=== PATIENT | female | born 1940 | race Caucasian/White ===

== ENCOUNTER 2018-04-15 19:51 | Inpatient (IN) | payer OTHER, MEDICAID ==
[2018-04-15] MEDS: ONDANSETRON 4 MG INJ IV (20:20)
[2018-04-15] MEDS: morphine 4 MG/ML VIAL IV (20:20)
[2018-04-15 20:21] LABS: ADD MAN DIFF? NO
[2018-04-15 20:22] LABS: BASOPHILS % 0.3 % (0.0-2.0); EOSINOPHILS # 0.1 10^3/ul (0.0-0.5); EOSINOPHILS % 1.2 % (0.0-7.0); HEMATOCRIT 34.1 % (37.0-47.0); HEMOGLOBIN 10.9 g/dl (12.0-16.0); LYMPHOCYTES # 1.3 10^3/ul (0.8-2.9); LYMPHOCYTES % 19.2 % (15.0-51.0); MEAN CORPUSCULAR HEMOGLOBIN 30.8 pg (29.0-33.0); MEAN CORPUSCULAR VOLUME 96.3 fl (82.0-101.0); MEAN PLATELET VOLUME 9.7 fl (7.4-10.4); MONOCYTE # 0.6 10^3/ul (0.3-0.9); MONOCYTES % 8.5 % (0.0-11.0); NEUTROPHIL # 4.7 10^3/ul (1.6-7.5); NEUTROPHILS % 70.3 % (39.0-77.0); PLATELET COUNT 344 10^3/UL (140-415); RED BLOOD COUNT 3.54 10^6/ul (4.20-5.40); RED CELL DISTRIBUTION WIDTH 14.9 % (11.5-14.5)
[2018-04-15 20:22] LABS: WHITE BLOOD COUNT 6.6 10^3/ul (4.8-10.8)
[2018-04-15 20:41] LABS: ANION GAP 17 (5-13); BLOOD UREA NITROGEN 66 mg/dl (7-20); CALCIUM 8.2 mg/dl (8.4-10.2); CARBON DIOXIDE 17 mmol/L (21-31); CHLORIDE 96 mmol/L (97-110); GLUCOSE 93 mg/dl (70-220); POTASSIUM 5.6 mmol/L (3.5-5.1); SODIUM 130 mmol/L (135-144)
[2018-04-15 20:43] LABS: INR 1.03; PROTIME 13.6 Sec (11.9-14.9); PT RATIO 1.1
[2018-04-15 20:44] LABS: PARTIAL THROMBOPLASTIN TIME 41.2 Sec (23.0-35.0)
[2018-04-15 20:51] LABS: CREATININE 5.66 mg/dl (0.44-1.00)
[2018-04-15 20:53] LABS: TROPONIN-I < 0.012 ng/ml (0.000-0.120)
[2018-04-15] MEDS: SODIUM POLYSTYRENE 15 GM KIT (POWDER + SORBITOL) PO (21:15)
[2018-04-15] MEDS ORDERED: ONDANSETRON 4 MG INJ IV (22:00)
[2018-04-15] MEDS ORDERED: ACETAMINOPHEN 325 MG TAB PO (22:00)
[2018-04-15] MEDS ORDERED: GLUCOSE GEL 15 GRAM TUBE BUCCAL (23:30)
[2018-04-15] MEDS ORDERED: GLUCAGON 1 MG INJ IM (23:30)
[2018-04-15] MEDS ORDERED: DEXTROSE 50% 50 ML SYRINGE IV (23:30)
[2018-04-15] MEDS ORDERED: GLUCOSE GEL 15 GRAM TUBE PO ×2 (23:30)
[2018-04-16] MEDS: SODIUM POLYSTYRENE 15 GM KIT (POWDER + SORBITOL) PO (00:40)
[2018-04-16] MEDS: ONDANSETRON 4 MG INJ IV ×4 (00:41→23:30)
[2018-04-16] MEDS: traMADol 50 MG TAB PO (02:00)
[2018-04-16] MEDS ORDERED: PENDING SANTYL ORDER FOR WOUND CARE XX (04:30)
[2018-04-16] MEDS: PANTOPRAZOLE SODIUM 20 MG TABEC PO (05:50)
[2018-04-16 06:20] LABS: ADD MAN DIFF? NO
[2018-04-16 06:25] LABS: BASOPHILS % 0.4 % (0.0-2.0); EOSINOPHILS % 0.4 % (0.0-7.0); HEMATOCRIT 33.3 % (37.0-47.0); HEMOGLOBIN 10.8 g/dl (12.0-16.0); LYMPHOCYTES # 0.8 10^3/ul (0.8-2.9); LYMPHOCYTES % 10.7 % (15.0-51.0); MEAN CORPUSCULAR HEMOGLOBIN 31.1 pg (29.0-33.0); MEAN CORPUSCULAR HGB CONC 32.4 g/dl (32.0-37.0); MEAN PLATELET VOLUME 10.1 fl (7.4-10.4); MONOCYTE # 0.6 10^3/ul (0.3-0.9); MONOCYTES % 8.2 % (0.0-11.0); NEUTROPHIL # 6.1 10^3/ul (1.6-7.5); PLATELET COUNT 311 10^3/UL (140-415); RED BLOOD COUNT 3.47 10^6/ul (4.20-5.40)
[2018-04-16 06:25] LABS: WHITE BLOOD COUNT 7.6 10^3/ul (4.8-10.8)
[2018-04-16] MEDS: HYDROCODONE/APAP (5/325) TAB PO ×2 (06:34→13:03)
[2018-04-16 07:19] LABS: ALANINE AMINOTRANSFERASE 17 IU/L (13-69); ALBUMIN 2.9 g/dl (3.3-4.9); ALBUMIN/GLOBULIN RATIO 0.74; ALKALINE PHOSPHATASE 212 IU/L (42-121); ANION GAP 20 (5-13); ASPARTATE AMINO TRANSFERASE 36 IU/L (15-46); BILIRUBIN,INDIRECT 0.1 mg/dl (0-1.1); BILIRUBIN,TOTAL 0.1 mg/dl (0.2-1.3); BLOOD UREA NITROGEN 68 mg/dl (7-20); CALCIUM 8.2 mg/dl (8.4-10.2); CARBON DIOXIDE 15 mmol/L (21-31); CHLORIDE 97 mmol/L (97-110); GLUCOSE 90 mg/dl (70-220); POTASSIUM 5.4 mmol/L (3.5-5.1); SODIUM 132 mmol/L (135-144); TOTAL PROTEIN 6.8 g/dl (6.1-8.1)
[2018-04-16] MEDS: HYDROmorphONE 0.5 MG/0.5 ML SYG IV ×2 (07:43→14:25)
[2018-04-16] MEDS: INSULIN ASPART [NOVOLOG] 3 ML PEN SC ×3 (07:48→17:36)
[2018-04-16] MEDS: ISOSORBIDE MONONITRATE(SR)60 MG TAB PO (08:08)
[2018-04-16] MEDS: MULTIVIT/CA CARB/B CMPLX/FA TAB PO (08:08)
[2018-04-16] MEDS: ASPIRIN (EC) 81 MG TAB PO (08:08)
[2018-04-16 08:37] LABS: CREATININE 6.07 mg/dl (0.44-1.00)
[2018-04-16] MEDS: hydrALAzine 20 MG INJ IV (11:56)
[2018-04-16] MEDS ORDERED: HYDROmorphONE 0.5 MG/0.5 ML SYG IV (15:30)
[2018-04-16 20:19] LABS: HEPATITIS B SURFACE ANTIGEN NEGATIVE (NEGATIVE)
[2018-04-16] MEDS: LOSARTAN 25 MG TAB PO (23:30)
[2018-04-16] MEDS: ATORVASTATIN 40 MG TAB PO (23:30)
[2018-04-16] MEDS: HEPARIN 1000 UNITS/ML 10 ML INJ CATHETER (23:36)
[2018-04-17] MEDS: HYDROmorphONE 0.5 MG/0.5 ML SYG IV ×3 (00:16→20:57)
[2018-04-17 05:35] LABS: ADD MAN DIFF? NO
[2018-04-17 05:43] LABS: BASOPHILS % 0.3 % (0.0-2.0); HEMATOCRIT 31.1 % (37.0-47.0); HEMOGLOBIN 10.2 g/dl (12.0-16.0); LYMPHOCYTES # 0.8 10^3/ul (0.8-2.9); LYMPHOCYTES % 10.1 % (15.0-51.0); MEAN CORPUSCULAR HEMOGLOBIN 31.2 pg (29.0-33.0); MEAN CORPUSCULAR HGB CONC 32.8 g/dl (32.0-37.0); MEAN CORPUSCULAR VOLUME 95.1 fl (82.0-101.0); MEAN PLATELET VOLUME 9.7 fl (7.4-10.4); MONOCYTE # 0.7 10^3/ul (0.3-0.9); MONOCYTES % 9.9 % (0.0-11.0); NEUTROPHIL # 5.9 10^3/ul (1.6-7.5); NEUTROPHILS % 79.2 % (39.0-77.0); PLATELET COUNT 293 10^3/UL (140-415); RED BLOOD COUNT 3.27 10^6/ul (4.20-5.40); RED CELL DISTRIBUTION WIDTH 15.6 % (11.5-14.5)
[2018-04-17 05:43] LABS: WHITE BLOOD COUNT 7.5 10^3/ul (4.8-10.8)
[2018-04-17 05:52] LABS: ALANINE AMINOTRANSFERASE 24 IU/L (13-69); ALBUMIN 2.8 g/dl (3.3-4.9); ALBUMIN/GLOBULIN RATIO 0.71; ALKALINE PHOSPHATASE 185 IU/L (42-121); ANION GAP 10 (5-13); ASPARTATE AMINO TRANSFERASE 35 IU/L (15-46); BILIRUBIN,INDIRECT 0.3 mg/dl (0-1.1); BILIRUBIN,TOTAL 0.3 mg/dl (0.2-1.3); BLOOD UREA NITROGEN 23 mg/dl (7-20); CALCIUM 8.7 mg/dl (8.4-10.2); CARBON DIOXIDE 27 mmol/L (21-31); CHLORIDE 103 mmol/L (97-110); GLUCOSE 94 mg/dl (70-220); POTASSIUM 3.9 mmol/L (3.5-5.1); SODIUM 140 mmol/L (135-144); TOTAL PROTEIN 6.7 g/dl (6.1-8.1)
[2018-04-17] MEDS: INSULIN ASPART [NOVOLOG] 3 ML PEN SC ×3 (08:00→17:18)
[2018-04-17] MEDS: ONDANSETRON 4 MG INJ IV (08:34)
[2018-04-17] MEDS: MULTIVIT/CA CARB/B CMPLX/FA TAB PO (09:27)
[2018-04-17] MEDS: ASPIRIN (EC) 81 MG TAB PO (09:28)
[2018-04-17] MEDS: LOSARTAN 25 MG TAB PO ×2 (09:28→20:56)
[2018-04-17] MEDS: ISOSORBIDE MONONITRATE(SR)60 MG TAB PO (09:28)
[2018-04-17] MEDS: PANTOPRAZOLE SODIUM 20 MG TABEC PO (09:29)
[2018-04-17] MEDS ORDERED: METOPROLOL 5 MG INJ IV (11:30)
[2018-04-17 11:52] LABS: CREATINE KINASE 82 IU/L (23-200)
[2018-04-17 12:05] LABS: CK INDEX 3.5; CK-MB 2.91 ng/ml (0.0-2.4)
[2018-04-17 12:08] LABS: TROPONIN-I 0.229 ng/ml (0.000-0.120)
[2018-04-17 12:50] LABS: CREATINE KINASE 73 IU/L (23-200)
[2018-04-17 13:02] LABS: CK INDEX 3.6
[2018-04-17 13:03] LABS: TROPONIN-I 0.274 ng/ml (0.000-0.120)
[2018-04-17] MEDS: traMADol 50 MG TAB PO ×2 (14:33→23:07)
[2018-04-17 19:29] LABS: TROPONIN-I 0.307 ng/ml (0.000-0.120)
[2018-04-17] MEDS: HEPARIN 5,000 UNIT/1 ML VIAL SC ×2 (20:19→21:01)
[2018-04-17] MEDS: ATORVASTATIN 40 MG TAB PO (20:55)
[2018-04-18] MEDS: HYDROmorphONE 0.5 MG/0.5 ML SYG IV ×4 (01:03→21:26)
[2018-04-18 01:13] LABS: CREATINE KINASE 74 IU/L (23-200)
[2018-04-18 01:27] LABS: CK INDEX 2.5; CK-MB 1.88 ng/ml (0.0-2.4)
[2018-04-18 01:33] LABS: TROPONIN-I 0.273 ng/ml (0.000-0.120)
[2018-04-18] MEDS: PANTOPRAZOLE SODIUM 20 MG TABEC PO (07:45)
[2018-04-18] MEDS: MULTIVIT/CA CARB/B CMPLX/FA TAB PO (08:15)
[2018-04-18] MEDS: ASPIRIN (EC) 325 MG TAB PO (08:16)
[2018-04-18] MEDS: ISOSORBIDE MONONITRATE(SR)60 MG TAB PO (08:17)
[2018-04-18] MEDS: LOSARTAN 25 MG TAB PO ×2 (08:17→21:25)
[2018-04-18 08:23] LABS: ANION GAP 9 (5-13); BLOOD UREA NITROGEN 29 mg/dl (7-20); CALCIUM 8.4 mg/dl (8.4-10.2); CARBON DIOXIDE 26 mmol/L (21-31); CHLORIDE 102 mmol/L (97-110); CREATININE 3.98 mg/dl (0.44-1.00); GLUCOSE 115 mg/dl (70-220); POTASSIUM 3.3 mmol/L (3.5-5.1); SODIUM 137 mmol/L (135-144)
[2018-04-18 08:25] LABS: CHOLESTEROL 71 mg/dl (100-200)
[2018-04-18 08:25] LABS: CHOL/HDL RATIO 2.2 RATIO; HDL CHOLESTEROL 31 mg/dl (33-92); LDL CHOLESTEROL,CALCULATED 19 mg/dl; TRIGLYCERIDES 103 mg/dl (0-149)
[2018-04-18] MEDS: HEPARIN 5,000 UNIT/1 ML VIAL SC ×2 (08:37→21:36)
[2018-04-18] MEDS: INSULIN ASPART [NOVOLOG] 3 ML PEN SC ×3 (08:37→17:21)
[2018-04-18] MEDS: ONDANSETRON 4 MG INJ IV (11:09)
[2018-04-18] MEDS: POTASSIUM CHLORIDE (SR) 20 MEQ TAB PO (11:51)
[2018-04-18] MEDS: traMADol 50 MG TAB PO (17:39)
[2018-04-18] MEDS: HYDROCODONE/APAP (5/325) TAB PO (19:48)
[2018-04-18] MEDS: ATORVASTATIN 40 MG TAB PO (21:24)
[2018-04-18] MEDS: MUPIROCIN 2% 22 GM OINT TOP (21:26)
[2018-04-18] MEDS: BALSAM PERU/CASTOR OIL 60 GM TUBE TOP (21:26)
[2018-04-18] MEDS: HEPARIN 1000 UNITS/ML 10 ML INJ CATHETER (21:38)
[2018-04-19 06:16] LABS: MAGNESIUM 1.9 mg/dl (1.7-2.5)
[2018-04-19 06:16] LABS: PHOSPHORUS 3.4 mg/dl (2.5-4.9)
[2018-04-19 06:26] LABS: ANION GAP 4 (5-13); BLOOD UREA NITROGEN 11 mg/dl (7-20); CALCIUM 8.2 mg/dl (8.4-10.2); CARBON DIOXIDE 28 mmol/L (21-31); CHLORIDE 105 mmol/L (97-110); CREATININE 2.22 mg/dl (0.44-1.00); GLUCOSE 92 mg/dl (70-220); POTASSIUM 4.3 mmol/L (3.5-5.1); SODIUM 137 mmol/L (135-144)
[2018-04-19] MEDS: PANTOPRAZOLE SODIUM 20 MG TABEC PO (06:56)
[2018-04-19] MEDS: HYDROCODONE/APAP (5/325) TAB PO ×3 (06:56→21:18)
[2018-04-19] MEDS: INSULIN ASPART [NOVOLOG] 3 ML PEN SC ×3 (07:47→17:07)
[2018-04-19] MEDS: ASPIRIN (EC) 325 MG TAB PO (08:34)
[2018-04-19] MEDS: MULTIVIT/CA CARB/B CMPLX/FA TAB PO (08:34)
[2018-04-19] MEDS: ISOSORBIDE MONONITRATE(SR)60 MG TAB PO (08:37)
[2018-04-19] MEDS: LOSARTAN 25 MG TAB PO ×2 (08:37→21:18)
[2018-04-19] MEDS: BALSAM PERU/CASTOR OIL 60 GM TUBE TOP ×2 (08:38→21:18)
[2018-04-19] MEDS: MUPIROCIN 2% 22 GM OINT TOP ×2 (08:38→21:18)
[2018-04-19] MEDS: HEPARIN 5,000 UNIT/1 ML VIAL SC ×2 (08:45→21:25)
[2018-04-19] MEDS: HYDROmorphONE 0.5 MG/0.5 ML SYG IV (15:09)
[2018-04-19 15:28] LABS: FREE T4 (FREE THYROXINE) 2.03 ng/dl (0.85-1.93)
[2018-04-19] MEDS: ATORVASTATIN 40 MG TAB PO (21:16)
[2018-04-20] MEDS: DEXTROSE 5%-0.45% NACL 1,000 ML IV (00:49)
[2018-04-20] MEDS ORDERED: ACCU-CHEK XX (02:00)
[2018-04-20] MEDS: traMADol 50 MG TAB PO (02:17)
[2018-04-20] MEDS: INSULIN ASPART [NOVOLOG] 3 ML PEN SC ×6 (05:00→18:21)
[2018-04-20 05:50] LABS: ADD MAN DIFF? NO
[2018-04-20] MEDS: PANTOPRAZOLE SODIUM 20 MG TABEC PO ×2 (06:00→06:55)
[2018-04-20 06:08] LABS: BASOPHILS % 0.4 % (0.0-2.0); EOSINOPHILS # 0.1 10^3/ul (0.0-0.5); EOSINOPHILS % 2.5 % (0.0-7.0); HEMATOCRIT 27.8 % (37.0-47.0); LYMPHOCYTES % 17.8 % (15.0-51.0); MEAN CORPUSCULAR HEMOGLOBIN 32.3 pg (29.0-33.0); MEAN CORPUSCULAR HGB CONC 32.4 g/dl (32.0-37.0); MEAN CORPUSCULAR VOLUME 99.6 fl (82.0-101.0); MEAN PLATELET VOLUME 10.1 fl (7.4-10.4); MONOCYTE # 0.6 10^3/ul (0.3-0.9); NEUTROPHIL # 3.8 10^3/ul (1.6-7.5); NEUTROPHILS % 68.9 % (39.0-77.0); PLATELET COUNT 207 10^3/UL (140-415); RED BLOOD COUNT 2.79 10^6/ul (4.20-5.40)
[2018-04-20 06:08] LABS: WHITE BLOOD COUNT 5.5 10^3/ul (4.8-10.8)
[2018-04-20 06:29] LABS: ANION GAP 7 (5-13); BLOOD UREA NITROGEN 20 mg/dl (7-20); CARBON DIOXIDE 26 mmol/L (21-31); CHLORIDE 102 mmol/L (97-110); CREATININE 3.07 mg/dl (0.44-1.00); GLUCOSE 103 mg/dl (70-220); POTASSIUM 4.3 mmol/L (3.5-5.1); SODIUM 135 mmol/L (135-144)
[2018-04-20 06:40] LABS: PHOSPHORUS 4.2 mg/dl (2.5-4.9)
[2018-04-20 06:41] LABS: MAGNESIUM 1.8 mg/dl (1.7-2.5)
[2018-04-20] MEDS: HYDROCODONE/APAP (5/325) TAB PO ×3 (06:55→21:00)
[2018-04-20] MEDS: BALSAM PERU/CASTOR OIL 60 GM TUBE TOP ×2 (08:48→20:51)
[2018-04-20] MEDS: MUPIROCIN 2% 22 GM OINT TOP ×2 (08:48→20:51)
[2018-04-20] MEDS: HEPARIN 5,000 UNIT/1 ML VIAL SC ×2 (08:58→20:50)
[2018-04-20] MEDS: LOSARTAN 25 MG TAB PO ×2 (08:59→20:50)
[2018-04-20] MEDS: ASPIRIN (EC) 325 MG TAB PO (08:59)
[2018-04-20] MEDS: MULTIVIT/CA CARB/B CMPLX/FA TAB PO (09:00)
[2018-04-20] MEDS: ISOSORBIDE MONONITRATE(SR)30 MG TAB PO (09:00)
[2018-04-20] MEDS: HYDROmorphONE 0.5 MG/0.5 ML SYG IV ×2 (11:25→18:45)
[2018-04-20] MEDS: REGADENOSON 0.4 MG/5 ML SYG (19:29)
[2018-04-20] MEDS: HEPARIN 1000 UNITS/ML 10 ML INJ CATHETER (20:17)
[2018-04-20] MEDS: ATORVASTATIN 40 MG TAB PO (20:50)
[2018-04-21] MEDS: HYDROmorphONE 0.5 MG/0.5 ML SYG IV ×4 (01:11→21:06)
[2018-04-21] MEDS: ACCU-CHEK XX (02:00)
[2018-04-21 05:52] LABS: ADD MAN DIFF? NO
[2018-04-21 06:00] LABS: WHITE BLOOD COUNT 7.9 10^3/ul (4.8-10.8)
[2018-04-21 06:00] LABS: BASOPHILS % 0.3 % (0.0-2.0); EOSINOPHILS # 0.1 10^3/ul (0.0-0.5); EOSINOPHILS % 1.3 % (0.0-7.0); HEMATOCRIT 33.4 % (37.0-47.0); HEMOGLOBIN 10.7 g/dl (12.0-16.0); LYMPHOCYTES # 1.1 10^3/ul (0.8-2.9); LYMPHOCYTES % 14.4 % (15.0-51.0); MEAN CORPUSCULAR HEMOGLOBIN 31.8 pg (29.0-33.0); MEAN CORPUSCULAR VOLUME 99.1 fl (82.0-101.0); MEAN PLATELET VOLUME 9.9 fl (7.4-10.4); MONOCYTE # 0.8 10^3/ul (0.3-0.9); MONOCYTES % 10.4 % (0.0-11.0); NEUTROPHIL # 5.8 10^3/ul (1.6-7.5); NEUTROPHILS % 73.2 % (39.0-77.0); PLATELET COUNT 283 10^3/UL (140-415); RED BLOOD COUNT 3.37 10^6/ul (4.20-5.40); RED CELL DISTRIBUTION WIDTH 16.2 % (11.5-14.5)
[2018-04-21] MEDS: PANTOPRAZOLE SODIUM 20 MG TABEC PO (06:00)
[2018-04-21 06:42] LABS: ANION GAP 6 (5-13); BLOOD UREA NITROGEN 10 mg/dl (7-20); CALCIUM 8.5 mg/dl (8.4-10.2); CARBON DIOXIDE 30 mmol/L (21-31); CHLORIDE 101 mmol/L (97-110); CREATININE 1.88 mg/dl (0.44-1.00); GLUCOSE 93 mg/dl (70-220); SODIUM 137 mmol/L (135-144)
[2018-04-21 08:48] LABS: PHOSPHORUS 3.3 mg/dl (2.5-4.9)
[2018-04-21 08:48] LABS: MAGNESIUM 1.9 mg/dl (1.7-2.5)
[2018-04-21] MEDS: INSULIN ASPART [NOVOLOG] 3 ML PEN SC ×3 (08:53→18:00)
[2018-04-21] MEDS: ASPIRIN (EC) 325 MG TAB PO (09:07)
[2018-04-21] MEDS: ISOSORBIDE MONONITRATE(SR)30 MG TAB PO (09:07)
[2018-04-21] MEDS: MULTIVIT/CA CARB/B CMPLX/FA TAB PO (09:08)
[2018-04-21] MEDS: LOSARTAN 25 MG TAB PO ×2 (09:08→20:14)
[2018-04-21] MEDS: MUPIROCIN 2% 22 GM OINT TOP ×2 (09:09→20:18)
[2018-04-21] MEDS: BALSAM PERU/CASTOR OIL 60 GM TUBE TOP ×2 (09:10→20:20)
[2018-04-21] MEDS: HEPARIN 5,000 UNIT/1 ML VIAL SC ×2 (09:19→21:05)
[2018-04-21] MEDS: ATORVASTATIN 40 MG TAB PO (20:15)
[2018-04-21] MEDS: HYDROCODONE/APAP (5/325) TAB PO (22:47)
[2018-04-21] MEDS: ONDANSETRON 4 MG INJ IV (22:52)
[2018-04-22] MEDS: ACCU-CHEK XX (02:20)
[2018-04-22] MEDS: HYDROmorphONE 0.5 MG/0.5 ML SYG IV ×3 (03:07→20:47)
[2018-04-22] MEDS: HYDROCODONE/APAP (5/325) TAB PO (05:34)
[2018-04-22] MEDS: PANTOPRAZOLE SODIUM 20 MG TABEC PO (06:00)
[2018-04-22] MEDS ORDERED: CLINDAMYCIN 600 MG/50 ML D5W IVPB IVPB (07:00)
[2018-04-22] MEDS: INSULIN ASPART [NOVOLOG] 3 ML PEN SC ×3 (08:00→17:30)
[2018-04-22] MEDS: LOSARTAN 25 MG TAB PO ×2 (08:01→20:46)
[2018-04-22] MEDS: ISOSORBIDE MONONITRATE(SR)30 MG TAB PO (08:01)
[2018-04-22] MEDS: ASPIRIN (EC) 325 MG TAB PO (08:01)
[2018-04-22] MEDS: MULTIVIT/CA CARB/B CMPLX/FA TAB PO (08:01)
[2018-04-22] MEDS ORDERED: MIDAZOLAM 1 MG/ML 2 ML INJ (09:57)
[2018-04-22] MEDS ORDERED: FENTAnyl 50 MCG/ML VIAL (09:57)
[2018-04-22] MEDS ORDERED: ETOMIDATE 20 MG INJ (09:58)
[2018-04-22] MEDS ORDERED: ROPIVACAINE 0.5 % 30 ML VIAL (10:00)
[2018-04-22] MEDS ORDERED: NACL 0.9% 3 ML SYG IV (11:30)
[2018-04-22] MEDS ORDERED: ONDANSETRON 4 MG INJ IV (11:30)
[2018-04-22] MEDS ORDERED: HYDROmorphONE 1 MG/5 ML IV SYRINGE IV ×2 (11:30)
[2018-04-22] MEDS ORDERED: LABETALOL HCL 20MG INJ IV (11:30)
[2018-04-22] MEDS: hydrALAzine 20 MG INJ IV ×2 (12:15→12:16)
[2018-04-22] MEDS: BALSAM PERU/CASTOR OIL 60 GM TUBE TOP ×2 (13:11→21:00)
[2018-04-22] MEDS: MUPIROCIN 2% 22 GM OINT TOP ×2 (13:11→20:47)
[2018-04-22] MEDS: SOD CHLORIDE 0.9% 1,000 ML IV ×2 (13:32→21:16)
[2018-04-22] MEDS: CEFAZOLIN 1 GM/50 ML (PMX) 50 ML IVPB (13:32)
[2018-04-22] MEDS: HEPARIN 5,000 UNIT/1 ML VIAL SC ×2 (13:46→22:25)
[2018-04-22] MEDS: HEPARIN 1000 UNITS/ML 10 ML INJ CATHETER (17:15)
[2018-04-22] MEDS: ATORVASTATIN 40 MG TAB PO (20:46)
[2018-04-22] MEDS: CALCIUM/VITAMIN D (500/200) TAB PO (20:46)
[2018-04-23] MEDS: ONDANSETRON 4 MG INJ IV ×2 (00:18→09:07)
[2018-04-23] MEDS: CEFAZOLIN 1 GM/50 ML (PMX) 50 ML IVPB (00:48)
[2018-04-23] MEDS: METOPROLOL 5 MG INJ IV (01:52)
[2018-04-23] MEDS: ACCU-CHEK XX (01:54)
[2018-04-23] MEDS: morphine 2 MG INJ IV ×3 (04:24→09:07)
[2018-04-23] MEDS: PANTOPRAZOLE SODIUM 20 MG TABEC PO (06:43)
[2018-04-23] MEDS: SOD CHLORIDE 0.9% 1,000 ML IV ×2 (07:52→17:48)
[2018-04-23] MEDS: ASPIRIN (EC) 325 MG TAB PO (08:20)
[2018-04-23] MEDS: MULTIVIT/CA CARB/B CMPLX/FA TAB PO (08:20)
[2018-04-23] MEDS: CALCIUM/VITAMIN D (500/200) TAB PO ×2 (08:20→20:41)
[2018-04-23] MEDS: LOSARTAN 25 MG TAB PO ×2 (08:21→20:40)
[2018-04-23] MEDS: ISOSORBIDE MONONITRATE(SR)30 MG TAB PO (08:21)
[2018-04-23] MEDS: BALSAM PERU/CASTOR OIL 60 GM TUBE TOP ×2 (08:22→20:41)
[2018-04-23] MEDS: MUPIROCIN 2% 22 GM OINT TOP ×2 (08:22→20:41)
[2018-04-23] MEDS: INSULIN ASPART [NOVOLOG] 3 ML PEN SC ×3 (08:24→17:52)
[2018-04-23] MEDS: HEPARIN 5,000 UNIT/1 ML VIAL SC ×2 (08:25→20:48)
[2018-04-23] MEDS ORDERED: ENOXAPARIN 40 MG/0.4 ML SYG SC (09:00)
[2018-04-23] MEDS: traMADol 50 MG TAB PO ×2 (09:31→16:19)
[2018-04-23] MEDS: KETOROLAC 15 MG INJ IV (12:05)
[2018-04-23] MEDS: HYDROCODONE/APAP (5/325) TAB PO (12:47)
[2018-04-23] MEDS: ATORVASTATIN 40 MG TAB PO (20:40)
[2018-04-24] MEDS: ACCU-CHEK XX (02:17)
[2018-04-24] MEDS: SOD CHLORIDE 0.9% 1,000 ML IV ×2 (02:53→12:17)
[2018-04-24] MEDS: PANTOPRAZOLE SODIUM 20 MG TABEC PO (06:00)
[2018-04-24] MEDS: BALSAM PERU/CASTOR OIL 60 GM TUBE TOP ×2 (08:07→21:08)
[2018-04-24] MEDS: ASPIRIN (EC) 325 MG TAB PO (08:08)
[2018-04-24] MEDS: ISOSORBIDE MONONITRATE(SR)30 MG TAB PO (08:08)
[2018-04-24] MEDS: MUPIROCIN 2% 22 GM OINT TOP ×2 (08:08→21:08)
[2018-04-24] MEDS: MULTIVIT/CA CARB/B CMPLX/FA TAB PO (08:09)
[2018-04-24] MEDS: LOSARTAN 25 MG TAB PO ×2 (08:09→21:06)
[2018-04-24] MEDS: CALCIUM/VITAMIN D (500/200) TAB PO ×2 (08:09→21:13)
[2018-04-24] MEDS: INSULIN ASPART [NOVOLOG] 3 ML PEN SC ×3 (08:15→17:22)
[2018-04-24] MEDS: traMADol 50 MG TAB PO (08:22)
[2018-04-24] MEDS: HEPARIN 5,000 UNIT/1 ML VIAL SC ×2 (08:26→21:20)
[2018-04-24] MEDS: morphine 2 MG INJ IV ×2 (13:48→22:25)
[2018-04-24] MEDS: ATORVASTATIN 40 MG TAB PO (21:04)
[2018-04-25] MEDS: ACCU-CHEK XX (02:00)
[2018-04-25] MEDS: morphine LIQ (10 MG/5 ML) CUP PO ×2 (03:32→11:21)
[2018-04-25] MEDS: PANTOPRAZOLE SODIUM 20 MG TABEC PO (05:36)
[2018-04-25 07:01] LABS: ANION GAP 6 (5-13); BLOOD UREA NITROGEN 28 mg/dl (7-20); CALCIUM 8.2 mg/dl (8.4-10.2); CARBON DIOXIDE 26 mmol/L (21-31); CHLORIDE 106 mmol/L (97-110); CREATININE 3.04 mg/dl (0.44-1.00); GLUCOSE 102 mg/dl (70-220); POTASSIUM 3.9 mmol/L (3.5-5.1); SODIUM 138 mmol/L (135-144)
[2018-04-25] MEDS: INSULIN ASPART [NOVOLOG] 3 ML PEN SC ×4 (07:35→17:35)
[2018-04-25] MEDS: HEPARIN 5,000 UNIT/1 ML VIAL SC ×2 (08:38→22:44)
[2018-04-25] MEDS: MULTIVIT/CA CARB/B CMPLX/FA TAB PO (08:39)
[2018-04-25] MEDS: ASPIRIN (EC) 325 MG TAB PO (08:39)
[2018-04-25] MEDS: CALCIUM/VITAMIN D (500/200) TAB PO ×2 (08:39→22:42)
[2018-04-25] MEDS: BALSAM PERU/CASTOR OIL 60 GM TUBE TOP ×2 (08:40→21:00)
[2018-04-25] MEDS: MUPIROCIN 2% 22 GM OINT TOP (08:40)
[2018-04-25] MEDS: HYDROmorphONE 1 MG/ML SYG IV ×3 (08:45→21:37)
[2018-04-25] MEDS: ISOSORBIDE MONONITRATE(SR)30 MG TAB PO (09:00)
[2018-04-25] MEDS: LOSARTAN 25 MG TAB PO ×2 (09:00→21:00)
[2018-04-25] MEDS: ONDANSETRON 4 MG INJ IV ×2 (10:51→16:30)
[2018-04-25] MEDS: traMADol 50 MG TAB PO (14:00)
[2018-04-25 17:52] LABS: LIPASE 52 U/L (23-300)
[2018-04-25] MEDS: PANTOPRAZOLE 40 MG INJ IV (18:33)
[2018-04-25] MEDS: ATORVASTATIN 40 MG TAB PO (21:00)
[2018-04-25] MEDS: METOCLOPRAMIDE 10 MG INJ IV (21:37)
[2018-04-26] MEDS: ACCU-CHEK XX (01:15)
[2018-04-26] MEDS: traMADol 50 MG TAB PO (03:35)
[2018-04-26] MEDS: ACETAMINOPHEN 325 MG TAB PO (03:36)
[2018-04-26] MEDS: PANTOPRAZOLE 40 MG INJ IV ×2 (05:22→18:00)
[2018-04-26] MEDS ORDERED: DEXTROSE 50% 50 ML SYRINGE (07:00)
[2018-04-26] MEDS ORDERED: CA CHLORIDE 10% 10 ML SYRINGE (07:00)
[2018-04-26] MEDS ORDERED: NA BICARBONATE 8.4% 50 ML SYG ×2 (07:00)
[2018-04-26] MEDS ORDERED: EPINEPHrine 0.1 MG/ML SYG ×3 (07:00)
[2018-04-26] MEDS ORDERED: ATROPINE 1 MG/10 ML SYRINGE (07:00)
[2018-04-26] MEDS ORDERED: AMIODARONE 150 MG INJ (07:00)
[2018-04-26] MEDS: INSULIN ASPART [NOVOLOG] 3 ML PEN SC ×4 (07:35→21:55)
[2018-04-26] MEDS: LOSARTAN 25 MG TAB PO (08:00)
[2018-04-26] MEDS: MULTIVIT/CA CARB/B CMPLX/FA TAB PO (08:00)
[2018-04-26] MEDS: CALCIUM/VITAMIN D (500/200) TAB PO ×2 (08:00→21:45)
[2018-04-26] MEDS: ISOSORBIDE MONONITRATE(SR)30 MG TAB PO (08:00)
[2018-04-26] MEDS: ASPIRIN (EC) 325 MG TAB PO (08:00)
[2018-04-26] MEDS: DEXTROSE 50% 50 ML SYRINGE IV (08:19)
[2018-04-26] MEDS: BALSAM PERU/CASTOR OIL 60 GM TUBE TOP ×2 (09:00→21:00)
[2018-04-26] MEDS ORDERED: DOPamine-D5W 1.6 MG/ML 250 ML (09:54)
[2018-04-26] MEDS ORDERED: NORepinephrine 8MG/250 ML (PMX 250 ML ×2 (09:55→14:57)
[2018-04-26] MEDS ORDERED: EPINEPHRINE 4 MG in D5W 250 ML IV (10:21)
[2018-04-26 10:29] LABS: AADO2 Arterial 551.8 mmHg (7.0-24.0); Arterial Base Excess -1.6 mmol/L (-3.0-3); Arterial Blood Gas Oxygen Sat 97.5 mmHG (95.0-100.0); Arterial COHb 0.4 % (0.0-3.0); Arterial Fraction of Oxyhgb 96.6 % (93.0-99.0); Arterial MetHb 0.5 % (0.0-1.5); Arterial pCO2 38.1 mmhg (35-45); MODE VENT - AC; Site A-Line
[2018-04-26] MEDS: SOD CHLORIDE 0.9% 1,000 ML IV (11:00)
[2018-04-26] MEDS: HEPARIN 5,000 UNIT/1 ML VIAL SC ×2 (11:00→20:09)
[2018-04-26] MEDS: NORepinephrine 8MG/250 ML (PMX 250 ML IV ×2 (11:00→15:00)
[2018-04-26 11:13] LABS: ADD MAN DIFF? NO
[2018-04-26 11:15] LABS: ABNORMAL IP MESSAGE 1; HEMATOCRIT 21.2 % (37.0-47.0); MEAN CORPUSCULAR HEMOGLOBIN 32.3 pg (29.0-33.0); MEAN CORPUSCULAR HGB CONC 30.7 g/dl (32.0-37.0); MEAN CORPUSCULAR VOLUME 105.5 fl (82.0-101.0); MEAN PLATELET VOLUME 11.2 fl (7.4-10.4); NUCLEATED RED BLOOD CELLS% 0.2 /100WBC (0.0-0.0); PLATELET COUNT 173 10^3/UL (140-415); RED BLOOD COUNT 2.01 10^6/ul (4.20-5.40); RED CELL DISTRIBUTION WIDTH 18.2 % (11.5-14.5)
[2018-04-26 11:15] LABS: WHITE BLOOD COUNT 19.9 10^3/ul (4.8-10.8)
[2018-04-26 11:26] LABS: HEMOGLOBIN 6.5 g/dl (12.0-16.0); POSITIVE DIFF @See below
[2018-04-26] MEDS: CEFTRIAXONE 1 GM/50 ML (PMX) 50 ML IVPB (11:30)
[2018-04-26] MEDS: AMIODARONE 900 MG in DEXTROSE 5% 482 ML IV ×2 (11:30→19:00)
[2018-04-26] MEDS: DEXTROSE 5%-0.9% NACL 1,000 ML IV ×2 (11:30→11:31)
[2018-04-26 11:50] LABS: ANION GAP 16 (5-13); ANISOCYTOSIS 1+ (0-0); BAND NEUTROPHILS #M 4.7 10^3/ul (0.0-0.6); BAND NEUTROPHILS % (M) 24 % (0-4); BLOOD UREA NITROGEN 13 mg/dl (7-20); BURR CELLS 1+ (0-0); CALCIUM 8.1 mg/dl (8.4-10.2); CARBON DIOXIDE 21 mmol/L (21-31); CHLORIDE 107 mmol/L (97-110); CREATININE 1.53 mg/dl (0.44-1.00); EOSINOPHILS % (M) 1 % (0-7); ERYTHROBLAST% (NRBC) (M) 1 % (0-0); GLUCOSE 116 mg/dl (70-220); LYMPHOCYTES #M 0.3 10^3/ul (0.8-2.9); LYMPHOCYTES % (M) 2 % (15-51); METAMYELOCYTES #M 0.1 10^3/ul (0.0-0.0); METAMYELOCYTES %M 1 % (0-0); OVALOCYTES 1+ (0-0); PLATELET ESTIMATE NORMAL; POIKILOCYTOSIS 2+ (0-0); POLYCHROMASIA 2+ (0-0); POTASSIUM 3.7 mmol/L (3.5-5.1); SEG NEUT #M 15.3 10^3/ul (1.6-7.5); SEGMENTED NEUTROPHILS (M) % 72 % (39-77); SMUDGE%M 9 % (0-0); SODIUM 144 mmol/L (135-144)
[2018-04-26] MEDS: SOD CHLORIDE 0.9% 250 ML IV* (13:22)
[2018-04-26 14:17] LABS: IMMEDIATE SPIN CROSSMATCH 1 2
[2018-04-26] MEDS: PANTOPRAZOLE IV 80 MG in SOD CHLORIDE 0.9% 100 ML IV (16:30)
[2018-04-26 18:30] LABS: CREATINE KINASE 421 IU/L (23-200)
[2018-04-26 18:43] LABS: CK INDEX 7.2
[2018-04-26] MEDS: DIGOXIN 500 MCG INJ IV (19:41)
[2018-04-26] MEDS ORDERED: PHENYLephrine 80 MG in DEXTROSE 5% 242 ML IV (20:00)
[2018-04-26] MEDS ORDERED: PHENYLephrine 20MG IN 250 ML 250 ML IV (20:00)
[2018-04-26 21:28] LABS: HEMATOCRIT 30.7 % (37.0-47.0); HEMOGLOBIN 9.8 g/dl (12.0-16.0)
[2018-04-26] MEDS: ATORVASTATIN 40 MG TAB PO (21:45)
[2018-04-26] MEDS: PHENYLephrine 80 MG in DEXTROSE 5% 242 ML IV (22:31)
[2018-04-27] MEDS: NORepinephrine 8MG/250 ML (PMX 250 ML IV (00:42)
[2018-04-27] MEDS: INSULIN ASPART [NOVOLOG] 3 ML PEN SC ×6 (01:06→21:30)
[2018-04-27 01:33] LABS: CREATINE KINASE 519 IU/L (23-200)
[2018-04-27] MEDS: morphine 2 MG INJ IV ×2 (01:40→03:55)
[2018-04-27 01:45] LABS: CK INDEX 3.7
[2018-04-27] MEDS: ACCU-CHEK XX (02:00)
[2018-04-27] MEDS: PANTOPRAZOLE IV 80 MG in SOD CHLORIDE 0.9% 100 ML IV ×3 (02:15→22:57)
[2018-04-27] MEDS: DEXTROSE 5%-0.9% NACL 1,000 ML IV (02:15)
[2018-04-27 04:54] LABS: AADO2 Arterial 388.8 mmHg (7.0-24.0); Arterial Base Excess 1.7 mmol/L (-3.0-3); Arterial Blood Gas Oxygen Sat 99.1 mmHG (95.0-100.0); Arterial COHb 0.3 % (0.0-3.0); Arterial Fraction of Oxyhgb 98.6 % (93.0-99.0); Arterial HCO3 23.4 mmol/L (22.0-26.0); Arterial MetHb 0.2 % (0.0-1.5); Arterial pCO2 27.7 mmhg (35-45); MODE VENT - AC; Site A-Line
[2018-04-27 05:35] LABS: WHITE BLOOD COUNT 21.5 10^3/ul (4.8-10.8)
[2018-04-27 05:35] LABS: HEMATOCRIT 28.5 % (37.0-47.0); HEMOGLOBIN 9.4 g/dl (12.0-16.0); MEAN CORPUSCULAR VOLUME 94.1 fl (82.0-101.0); MEAN PLATELET VOLUME 11.6 fl (7.4-10.4); NUCLEATED RED BLOOD CELLS% 0.7 /100WBC (0.0-0.0); PLATELET COUNT 150 10^3/UL (140-415); POSITIVE DIFF @See below; RED BLOOD COUNT 3.03 10^6/ul (4.20-5.40); RED CELL DISTRIBUTION WIDTH 19.2 % (11.5-14.5)
[2018-04-27 05:36] LABS: ADD MAN DIFF? YES
[2018-04-27 05:55] LABS: ANION GAP 11 (5-13); BLOOD UREA NITROGEN 20 mg/dl (7-20); CALCIUM 8.1 mg/dl (8.4-10.2); CARBON DIOXIDE 26 mmol/L (21-31); CHLORIDE 106 mmol/L (97-110); CREATININE 1.98 mg/dl (0.44-1.00); GLUCOSE 165 mg/dl (70-220); POTASSIUM 3.3 mmol/L (3.5-5.1); SODIUM 143 mmol/L (135-144)
[2018-04-27 05:59] LABS: CREATINE KINASE 747 IU/L (23-200)
[2018-04-27 08:04] LABS: ANISOCYTOSIS 1+ (0-0); BAND NEUTROPHILS #M 5.5 10^3/ul (0.0-0.6); BAND NEUTROPHILS % (M) 26 % (0-4); BURR CELLS 1+ (0-0); ELLIPTO 1+ (0-0); GIANT THROMBO% (M) 4 % (0-0); HYPOCHROMASIA 1+ (0-0); LYMPHOCYTES #M 2.7 10^3/ul (0.8-2.9); LYMPHOCYTES % (M) 13 % (15-51); MONOCYTES % (M) 5 % (0-11); PLATELET ESTIMATE NORMAL; POIKILOCYTOSIS 2+ (0-0); SEG NEUT #M 13.2 10^3/ul (1.6-7.5); SEGMENTED NEUTROPHILS (M) % 56 % (39-77); SMUDGE%M 4 % (0-0); TARGET CELLS 1+ (0-0)
[2018-04-27 08:30] LABS: AADO2 Arterial 240.3 mmHg (7.0-24.0); Allen Test ACCEPTAB; Arterial Base Excess 6.7 mmol/L (-3.0-3); Arterial Blood Gas Oxygen Sat 97.2 mmHG (95.0-100.0); Arterial COHb 0.3 % (0.0-3.0); Arterial Fraction of Oxyhgb 96.7 % (93.0-99.0); Arterial HCO3 27.5 mmol/L (22.0-26.0); Arterial MetHb 0.2 % (0.0-1.5); Arterial pCO2 27.1 mmhg (35-45); MODE VENT - AC; Site Right Radial
[2018-04-27] MEDS: COLLAGENASE 5 GM (UD JAR) TOP (09:31)
[2018-04-27] MEDS: MULTIVIT/CA CARB/B CMPLX/FA TAB PO (09:32)
[2018-04-27] MEDS: CALCIUM/VITAMIN D (500/200) TAB PO ×2 (09:32→21:22)
[2018-04-27] MEDS: BALSAM PERU/CASTOR OIL 60 GM TUBE TOP ×2 (09:32→21:27)
[2018-04-27] MEDS: POTASSIUM CHLORIDE 100 ML IVPB (10:23)
[2018-04-27] MEDS: CEFTRIAXONE 1 GM/50 ML (PMX) 50 ML IVPB (10:23)
[2018-04-27] MEDS: PROPOFOL 100 ML IV (13:54)
[2018-04-27] MEDS: PHENYLephrine 80 MG in DEXTROSE 5% 242 ML IV ×2 (17:01→23:05)
[2018-04-27] MEDS: METOCLOPRAMIDE 10 MG INJ IV (17:41)
[2018-04-27] MEDS: ATORVASTATIN 40 MG TAB PO (21:22)
[2018-04-28] MEDS: PROPOFOL 100 ML IV ×3 (00:47→22:32)
[2018-04-28] MEDS: INSULIN ASPART [NOVOLOG] 3 ML PEN SC ×6 (00:52→20:58)
[2018-04-28] MEDS: ACCU-CHEK XX (02:00)
[2018-04-28] MEDS: DEXTROSE 5%-0.9% NACL 1,000 ML IV (02:53)
[2018-04-28] MEDS: PHENYLephrine 80 MG in DEXTROSE 5% 242 ML IV ×4 (05:02→20:57)
[2018-04-28 05:43] LABS: HEMATOCRIT 26.9 % (37.0-47.0); HEMOGLOBIN 9.1 g/dl (12.0-16.0); MEAN CORPUSCULAR HEMOGLOBIN 31.7 pg (29.0-33.0); MEAN CORPUSCULAR HGB CONC 33.8 g/dl (32.0-37.0); MEAN CORPUSCULAR VOLUME 93.7 fl (82.0-101.0); MEAN PLATELET VOLUME 12.4 fl (7.4-10.4); NUCLEATED RED BLOOD CELLS% 2.2 /100WBC (0.0-0.0); PLATELET COUNT 142 10^3/UL (140-415); RED BLOOD COUNT 2.87 10^6/ul (4.20-5.40); RED CELL DISTRIBUTION WIDTH 19.7 % (11.5-14.5)
[2018-04-28 05:43] LABS: WHITE BLOOD COUNT 20.2 10^3/ul (4.8-10.8)
[2018-04-28 05:55] LABS: ADD MAN DIFF? YES; POSITIVE DIFF @See below
[2018-04-28 06:03] LABS: PHOSPHORUS 1.6 mg/dl (2.5-4.9)
[2018-04-28 06:03] LABS: MAGNESIUM 1.6 mg/dl (1.7-2.5)
[2018-04-28 06:23] LABS: ANION GAP 11 (5-13); BLOOD UREA NITROGEN 24 mg/dl (7-20); CARBON DIOXIDE 25 mmol/L (21-31); CHLORIDE 103 mmol/L (97-110); CREATININE 2.46 mg/dl (0.44-1.00); GLUCOSE 211 mg/dl (70-220); POTASSIUM 3.6 mmol/L (3.5-5.1); SODIUM 139 mmol/L (135-144)
[2018-04-28] MEDS: AMIODARONE 900 MG in DEXTROSE 5% 482 ML IV (07:08)
[2018-04-28 08:00] LABS: AADO2 Arterial 150.9 mmHg (7.0-24.0); Arterial Base Excess 0.9 mmol/L (-3.0-3); Arterial Blood Gas Oxygen Sat 97.1 mmHG (95.0-100.0); Arterial COHb 0.1 % (0.0-3.0); Arterial Fraction of Oxyhgb 96.8 % (93.0-99.0); Arterial HCO3 24.2 mmol/L (22.0-26.0); Arterial MetHb 0.2 % (0.0-1.5); Arterial pCO2 33.7 mmhg (35-45); MODE VENT - AC; Site A-Line
[2018-04-28] MEDS: MULTIVIT/CA CARB/B CMPLX/FA TAB PO (08:41)
[2018-04-28] MEDS: BALSAM PERU/CASTOR OIL 60 GM TUBE TOP ×2 (08:41→21:39)
[2018-04-28] MEDS: MAGNESIUM SULFATE 2 GM/50 ML 50 ML IVPB (08:41)
[2018-04-28] MEDS: CALCIUM/VITAMIN D (500/200) TAB PO ×2 (08:41→20:52)
[2018-04-28] MEDS: COLLAGENASE 5 GM (UD JAR) TOP (08:41)
[2018-04-28] MEDS: POTASSIUM PHOSPHATE 10 MM in SOD CHLORIDE 0.9% 250 ML IVPB (08:42)
[2018-04-28] MEDS: INSULIN GLARGINE [LANTus] (100 UNITS/ML) SYG SC (08:49)
[2018-04-28 09:01] LABS: CREATINE KINASE 341 IU/L (23-200)
[2018-04-28 09:13] LABS: CK INDEX 1.3; CK-MB 4.49 ng/ml (0.0-2.4)
[2018-04-28] MEDS: PANTOPRAZOLE IV 80 MG in SOD CHLORIDE 0.9% 100 ML IV (09:41)
[2018-04-28 10:08] LABS: ANISOCYTOSIS 2+ (0-0); BAND NEUTROPHILS #M 2.4 10^3/ul (0.0-0.6); BAND NEUTROPHILS % (M) 12 % (0-4); BURR CELLS 3+ (0-0); ERYTHROBLAST% (NRBC) (M) 2 % (0-0); GIANT THROMBO% (M) 2 % (0-0); LYMPHOCYTES #M 0.8 10^3/ul (0.8-2.9); LYMPHOCYTES % (M) 4 % (15-51); MICROCYTOSIS 1+ (0-0); MONOCYTE #M 0.8 10^3/ul (0.3-0.9); MONOCYTES % (M) 4 % (0-11); PLATELET ESTIMATE NORMAL; POIKILOCYTOSIS 3+ (0-0); POLYCHROMASIA 3+ (0-0); SEG NEUT #M 16.6 10^3/ul (1.6-7.5); SEGMENTED NEUTROPHILS (M) % 80 % (39-77)
[2018-04-28] MEDS: CEFTRIAXONE 1 GM/50 ML (PMX) 50 ML IVPB (11:57)
[2018-04-28] MEDS: FENTAnyl (DRIP) 1000 mcg/100mL 100 ML IV (12:26)
[2018-04-28] MEDS: PANTOPRAZOLE 40 MG INJ IV (17:49)
[2018-04-28] MEDS: ATORVASTATIN 40 MG TAB PO (20:52)
[2018-04-28] MEDS: METOCLOPRAMIDE 10 MG INJ IV (22:31)
[2018-04-29] MEDS: INSULIN ASPART [NOVOLOG] 3 ML PEN SC ×6 (01:15→21:00)
[2018-04-29] MEDS: PHENYLephrine 80 MG in DEXTROSE 5% 242 ML IV ×4 (01:17→19:01)
[2018-04-29] MEDS: ACCU-CHEK XX (02:05)
[2018-04-29] MEDS: FENTAnyl (DRIP) 1000 mcg/100mL 100 ML IV ×2 (02:27→22:10)
[2018-04-29] MEDS: PANTOPRAZOLE 40 MG INJ IV ×2 (05:14→18:12)
[2018-04-29 05:16] LABS: ADD MAN DIFF? NO
[2018-04-29 05:24] LABS: BASOPHIL # 0.1 10^3/ul (0.0-0.1); BASOPHILS % 0.3 % (0.0-2.0); EOSINOPHILS # 0.2 10^3/ul (0.0-0.5); EOSINOPHILS % 1.1 % (0.0-7.0); HEMATOCRIT 26.9 % (37.0-47.0); LYMPHOCYTES # 1.3 10^3/ul (0.8-2.9); LYMPHOCYTES % 6.2 % (15.0-51.0); MEAN CORPUSCULAR HEMOGLOBIN 32.3 pg (29.0-33.0); MEAN CORPUSCULAR HGB CONC 33.5 g/dl (32.0-37.0); MEAN CORPUSCULAR VOLUME 96.4 fl (82.0-101.0); MEAN PLATELET VOLUME 12.5 fl (7.4-10.4); MONOCYTE # 0.9 10^3/ul (0.3-0.9); MONOCYTES % 4.4 % (0.0-11.0); NEUTROPHIL # 18.4 10^3/ul (1.6-7.5); NUCLEATED RED BLOOD CELLS # 0.4 10^3/ul (0.0-0.0); PLATELET COUNT 115 10^3/UL (140-415); RED BLOOD COUNT 2.79 10^6/ul (4.20-5.40); RED CELL DISTRIBUTION WIDTH 19.4 % (11.5-14.5)
[2018-04-29 05:24] LABS: WHITE BLOOD COUNT 21.1 10^3/ul (4.8-10.8)
[2018-04-29 06:40] LABS: ANION GAP 10 (5-13); BLOOD UREA NITROGEN 28 mg/dl (7-20); CARBON DIOXIDE 24 mmol/L (21-31); CHLORIDE 100 mmol/L (97-110); CREATININE 2.66 mg/dl (0.44-1.00); GLUCOSE 208 mg/dl (70-220); MAGNESIUM 2.1 mg/dl (1.7-2.5); PHOSPHORUS 1.2 mg/dl (2.5-4.9); POTASSIUM 3.5 mmol/L (3.5-5.1); SODIUM 134 mmol/L (135-144)
[2018-04-29] MEDS: BALSAM PERU/CASTOR OIL 60 GM TUBE TOP ×2 (08:27→20:19)
[2018-04-29] MEDS: MULTIVIT/CA CARB/B CMPLX/FA TAB PO (08:27)
[2018-04-29] MEDS: COLLAGENASE 5 GM (UD JAR) TOP (08:27)
[2018-04-29] MEDS: CALCIUM/VITAMIN D (500/200) TAB PO ×2 (08:27→21:44)
[2018-04-29 08:30] LABS: AADO2 Arterial 152.1 mmHg (7.0-24.0); Arterial Base Excess 0.1 mmol/L (-3.0-3); Arterial Blood Gas Oxygen Sat 97.2 mmHG (95.0-100.0); Arterial COHb 0.3 % (0.0-3.0); Arterial Fraction of Oxyhgb 96.7 % (93.0-99.0); Arterial HCO3 23.2 mmol/L (22.0-26.0); Arterial MetHb 0.2 % (0.0-1.5); Arterial pCO2 32.3 mmhg (35-45); MODE VENT - AC; Site A-Line
[2018-04-29] MEDS: INSULIN GLARGINE [LANTus] (100 UNITS/ML) SYG SC (08:31)
[2018-04-29] MEDS: CEFTRIAXONE 1 GM/50 ML (PMX) 50 ML IVPB (12:49)
[2018-04-29] MEDS: PROPOFOL 100 ML IV (12:49)
[2018-04-29] MEDS: METOCLOPRAMIDE 10 MG INJ IV ×2 (18:12→23:59)
[2018-04-29] MEDS: HEPARIN 1000 UNITS/ML 10 ML INJ CATHETER (20:16)
[2018-04-29] MEDS: SODIUM PHOSPHATE 20 MEQ in SOD CHLORIDE 0.9% 250 ML IVPB (20:19)
[2018-04-29] MEDS: ATORVASTATIN 40 MG TAB PO (21:44)
[2018-04-30] MEDS: INSULIN ASPART [NOVOLOG] 3 ML PEN SC ×6 (01:00→20:32)
[2018-04-30] MEDS: ACCU-CHEK XX (02:43)
[2018-04-30] MEDS: PHENYLephrine 80 MG in DEXTROSE 5% 242 ML IV ×4 (03:35→21:07)
[2018-04-30] MEDS: PROPOFOL 100 ML IV ×3 (03:36→20:30)
[2018-04-30 05:04] LABS: ADD MAN DIFF? NO
[2018-04-30] MEDS: METOCLOPRAMIDE 10 MG INJ IV ×3 (05:19→17:57)
[2018-04-30] MEDS: LEVOTHYROXINE 100 MCG VIAL IV (05:19)
[2018-04-30] MEDS: PANTOPRAZOLE 40 MG INJ IV ×2 (05:19→17:57)
[2018-04-30 05:24] LABS: BASOPHIL # 0.1 10^3/ul (0.0-0.1); BASOPHILS % 0.3 % (0.0-2.0); EOSINOPHILS # 0.2 10^3/ul (0.0-0.5); EOSINOPHILS % 1.2 % (0.0-7.0); HEMATOCRIT 28.9 % (37.0-47.0); HEMOGLOBIN 9.6 g/dl (12.0-16.0); LYMPHOCYTES # 0.8 10^3/ul (0.8-2.9); LYMPHOCYTES % 4.2 % (15.0-51.0); MEAN CORPUSCULAR HEMOGLOBIN 32.2 pg (29.0-33.0); MEAN CORPUSCULAR HGB CONC 33.2 g/dl (32.0-37.0); MONOCYTE # 0.6 10^3/ul (0.3-0.9); MONOCYTES % 3.2 % (0.0-11.0); NEUTROPHIL # 16.7 10^3/ul (1.6-7.5); NEUTROPHILS % 89.9 % (39.0-77.0); NUCLEATED RED BLOOD CELLS # 0.3 10^3/ul (0.0-0.0); NUCLEATED RED BLOOD CELLS% 1.6 /100WBC (0.0-0.0); PLATELET COUNT 107 10^3/UL (140-415); RED BLOOD COUNT 2.98 10^6/ul (4.20-5.40); RED CELL DISTRIBUTION WIDTH 19.3 % (11.5-14.5)
[2018-04-30 05:24] LABS: WHITE BLOOD COUNT 18.6 10^3/ul (4.8-10.8)
[2018-04-30 05:40] LABS: ANION GAP 9 (5-13); BLOOD UREA NITROGEN 16 mg/dl (7-20); CALCIUM 7.7 mg/dl (8.4-10.2); CARBON DIOXIDE 29 mmol/L (21-31); CHLORIDE 96 mmol/L (97-110); CREATININE 1.81 mg/dl (0.44-1.00); GLUCOSE 113 mg/dl (70-220); MAGNESIUM 1.7 mg/dl (1.7-2.5); PHOSPHORUS 2.3 mg/dl (2.5-4.9); POTASSIUM 3.7 mmol/L (3.5-5.1); SODIUM 134 mmol/L (135-144)
[2018-04-30] MEDS: FENTAnyl (DRIP) 1000 mcg/100mL 100 ML IV ×2 (08:38→17:59)
[2018-04-30] MEDS: COLLAGENASE 5 GM (UD JAR) TOP (09:08)
[2018-04-30] MEDS: MULTIVIT/CA CARB/B CMPLX/FA TAB PO (09:08)
[2018-04-30] MEDS: BALSAM PERU/CASTOR OIL 60 GM TUBE TOP ×2 (09:09→20:30)
[2018-04-30] MEDS: CALCIUM/VITAMIN D (500/200) TAB PO ×2 (09:09→20:30)
[2018-04-30] MEDS: INSULIN GLARGINE [LANTus] (100 UNITS/ML) SYG SC (09:15)
[2018-04-30 09:39] LABS: AADO2 Arterial 128.5 mmHg (7.0-24.0); Arterial Base Excess 0.9 mmol/L (-3.0-3); Arterial Blood Gas Oxygen Sat 93.1 mmHG (95.0-100.0); Arterial COHb 0.4 % (0.0-3.0); Arterial Fraction of Oxyhgb 92.5 % (93.0-99.0); Arterial HCO3 22.3 mmol/L (22.0-26.0); Arterial MetHb 0.2 % (0.0-1.5); Arterial pCO2 25.3 mmhg (35-45); MODE VENT - AC; Site A-Line
[2018-04-30] MEDS ORDERED: CEFEPIME 2GM/50 ML (PMX) 50 ML IVPB ×2 (10:30→21:00)
[2018-04-30] MEDS ORDERED: VANCOMYCIN IV PER PHARMACY XX (10:30)
[2018-04-30] MEDS: CEFEPIME 2GM/50 ML (PMX) 50 ML IVPB (12:13)
[2018-04-30] MEDS: VANCOMYCIN HCL 1.25 GM in SOD CHLORIDE 0.9% 250 ML IVPB (12:14)
[2018-04-30] MEDS: SODIUM PHOSPHATE 15 MMOL in SOD CHLORIDE 0.9% 250 ML IVPB (17:57)
[2018-04-30] MEDS: MIDODRINE 5 MG TAB PO (17:58)
[2018-04-30] MEDS: ATORVASTATIN 40 MG TAB PO (20:30)
[2018-05-01] MEDS: METOCLOPRAMIDE 10 MG INJ IV ×5 (00:07→23:54)
[2018-05-01] MEDS: INSULIN ASPART [NOVOLOG] 3 ML PEN SC ×6 (00:10→21:00)
[2018-05-01] MEDS: PHENYLephrine 80 MG in DEXTROSE 5% 242 ML IV ×4 (01:19→19:39)
[2018-05-01] MEDS: NORepinephrine 8MG/250 ML (PMX 250 ML IV (01:20)
[2018-05-01] MEDS: ACCU-CHEK XX (02:23)
[2018-05-01 05:06] LABS: HEMATOCRIT 26.5 % (37.0-47.0); HEMOGLOBIN 8.8 g/dl (12.0-16.0); MEAN CORPUSCULAR HEMOGLOBIN 32.5 pg (29.0-33.0); MEAN CORPUSCULAR HGB CONC 33.2 g/dl (32.0-37.0); MEAN CORPUSCULAR VOLUME 97.8 fl (82.0-101.0); MEAN PLATELET VOLUME 12.9 fl (7.4-10.4); NUCLEATED RED BLOOD CELLS% 1.6 /100WBC (0.0-0.0); PLATELET COUNT 103 10^3/UL (140-415); RED BLOOD COUNT 2.71 10^6/ul (4.20-5.40); RED CELL DISTRIBUTION WIDTH 19.2 % (11.5-14.5)
[2018-05-01 05:06] LABS: WHITE BLOOD COUNT 14.6 10^3/ul (4.8-10.8)
[2018-05-01 05:17] LABS: POSITIVE DIFF @See below
[2018-05-01 05:19] LABS: ADD MAN DIFF? YES
[2018-05-01 05:24] LABS: LACTIC ACID 1.8 mmol/L (0.5-2.0)
[2018-05-01 05:28] LABS: ANION GAP 14 (5-13); BLOOD UREA NITROGEN 20 mg/dl (7-20); CALCIUM 7.1 mg/dl (8.4-10.2); CARBON DIOXIDE 24 mmol/L (21-31); CHLORIDE 94 mmol/L (97-110); CREATININE 2.16 mg/dl (0.44-1.00); GLUCOSE 165 mg/dl (70-220); MAGNESIUM 1.6 mg/dl (1.7-2.5); POTASSIUM 3.4 mmol/L (3.5-5.1); SODIUM 132 mmol/L (135-144)
[2018-05-01] MEDS: FENTAnyl (DRIP) 1000 mcg/100mL 100 ML IV (05:29)
[2018-05-01] MEDS: PANTOPRAZOLE 40 MG INJ IV ×2 (05:30→17:17)
[2018-05-01] MEDS: LEVOTHYROXINE 100 MCG VIAL IV (05:30)
[2018-05-01] MEDS: INSULIN GLARGINE [LANTus] (100 UNITS/ML) SYG SC (08:02)
[2018-05-01] MEDS: MIDODRINE 5 MG TAB PO ×3 (08:04→17:17)
[2018-05-01] MEDS: COLLAGENASE 5 GM (UD JAR) TOP (08:04)
[2018-05-01] MEDS: BALSAM PERU/CASTOR OIL 60 GM TUBE TOP ×2 (08:04→21:08)
[2018-05-01] MEDS: CALCIUM/VITAMIN D (500/200) TAB PO ×2 (08:04→21:08)
[2018-05-01] MEDS: MULTIVIT/CA CARB/B CMPLX/FA TAB PO (08:04)
[2018-05-01 08:19] LABS: ANISOCYTOSIS 2+ (0-0); BAND NEUTROPHILS % (M) 7 % (0-4); BURR CELLS 1+ (0-0); EOSINOPHILS % (M) 1 % (0-7); ERYTHROBLAST% (NRBC) (M) 2 % (0-0); GIANT THROMBO% (M) 4 % (0-0); LYMPHOCYTES #M 1.6 10^3/ul (0.8-2.9); LYMPHOCYTES % (M) 11 % (15-51); MICROCYTOSIS 1+ (0-0); MONOCYTE #M 0.4 10^3/ul (0.3-0.9); MONOCYTES % (M) 3 % (0-11); MYELOCYTES #M 0.1 10^3/ul (0.0-0.0); MYELOCYTES % (M) 1 % (0-0); PLATELET ESTIMATE DECREASED; POIKILOCYTOSIS 3+ (0-0); POLYCHROMASIA 3+ (0-0); SEG NEUT #M 11.4 10^3/ul (1.6-7.5); SEGMENTED NEUTROPHILS (M) % 77 % (39-77)
[2018-05-01 11:19] LABS: CREATINE KINASE 64 IU/L (23-200)
[2018-05-01] MEDS: MAGNESIUM SULFATE 1 GM/D5W 100 ML IVPB (11:28)
[2018-05-01] MEDS: HYDROCORTISONE 100 MG INJ IV (11:28)
[2018-05-01 11:33] LABS: CK INDEX 2.3; CK-MB 1.49 ng/ml (0.0-2.4)
[2018-05-01] MEDS: PROPOFOL 100 ML IV ×2 (13:00→23:44)
[2018-05-01] MEDS: CEFEPIME 2GM/50 ML (PMX) 50 ML IVPB (13:18)
[2018-05-01] MEDS: POTASSIUM CHLORIDE 100 ML IVPB (14:25)
[2018-05-01] MEDS: ATORVASTATIN 40 MG TAB PO (21:08)
[2018-05-02] MEDS: PHENYLephrine 80 MG in DEXTROSE 5% 242 ML IV ×5 (00:18→23:14)
[2018-05-02] MEDS: INSULIN ASPART [NOVOLOG] 3 ML PEN SC ×6 (00:47→21:34)
[2018-05-02] MEDS: ACCU-CHEK XX (01:10)
[2018-05-02] MEDS: METOCLOPRAMIDE 10 MG INJ IV ×3 (05:14→18:00)
[2018-05-02] MEDS: LEVOTHYROXINE 100 MCG VIAL IV (05:14)
[2018-05-02] MEDS: PANTOPRAZOLE 40 MG INJ IV (05:14)
[2018-05-02 05:15] LABS: WHITE BLOOD COUNT 22.2 10^3/ul (4.8-10.8)
[2018-05-02 05:15] LABS: ABNORMAL IP MESSAGE 1; HEMATOCRIT 27.2 % (37.0-47.0); HEMOGLOBIN 9.1 g/dl (12.0-16.0); MEAN CORPUSCULAR HGB CONC 33.5 g/dl (32.0-37.0); MEAN CORPUSCULAR VOLUME 95.8 fl (82.0-101.0); NUCLEATED RED BLOOD CELLS% 0.4 /100WBC (0.0-0.0); PLATELET COUNT 92 10^3/UL (140-415); RED BLOOD COUNT 2.84 10^6/ul (4.20-5.40); RED CELL DISTRIBUTION WIDTH 19.3 % (11.5-14.5)
[2018-05-02 05:19] LABS: AMMONIA < 9 umol/l (9-30)
[2018-05-02 05:20] LABS: ADD MAN DIFF? YES; POSITIVE DIFF @See below
[2018-05-02 05:21] LABS: RETICULOCYTE RBC 2.78
[2018-05-02 05:21] LABS: RETICULOCYTE COUNT # 0.105 X10^6 (0.020-0.110); RETICULOCYTE COUNT % 3.8 % (0.5-1.5)
[2018-05-02 05:28] LABS: IRON 27 ug/dl (35-150)
[2018-05-02 05:32] LABS: ALANINE AMINOTRANSFERASE 16 IU/L (13-69); ALBUMIN 1.7 g/dl (3.3-4.9); ALKALINE PHOSPHATASE 270 IU/L (42-121); ASPARTATE AMINO TRANSFERASE 52 IU/L (15-46); BILIRUBIN,INDIRECT 0.2 mg/dl (0-1.1); BILIRUBIN,TOTAL 0.2 mg/dl (0.2-1.3); TOTAL PROTEIN 4.7 g/dl (6.1-8.1)
[2018-05-02 05:33] LABS: VANCOMYCIN,RANDOM < 5.0 ug/ml
[2018-05-02 05:37] LABS: % IRON SATURATION 44 % SAT (22-52); TOTAL IRON BINDING CAPACITY 61 ug/dl (241-421)
[2018-05-02 05:47] LABS: ANION GAP 15 (5-13); BLOOD UREA NITROGEN 27 mg/dl (7-20); CALCIUM 7.3 mg/dl (8.4-10.2); CARBON DIOXIDE 21 mmol/L (21-31); CHLORIDE 91 mmol/L (97-110); CREATININE 2.55 mg/dl (0.44-1.00); GLUCOSE 180 mg/dl (70-220); POTASSIUM 4.1 mmol/L (3.5-5.1); SODIUM 127 mmol/L (135-144)
[2018-05-02] MEDS: FENTAnyl (DRIP) 1000 mcg/100mL 100 ML IV (06:29)
[2018-05-02] MEDS: VANCOMYCIN 1 GM 250 ML IVPB (08:00)
[2018-05-02 09:07] LABS: MAGNESIUM 1.8 mg/dl (1.7-2.5)
[2018-05-02 09:07] LABS: PHOSPHORUS 2.4 mg/dl (2.5-4.9)
[2018-05-02] MEDS: HYDROCORTISONE 100 MG INJ IV (09:10)
[2018-05-02] MEDS: CALCIUM/VITAMIN D (500/200) TAB PO ×2 (09:11→21:28)
[2018-05-02] MEDS: MULTIVIT/CA CARB/B CMPLX/FA TAB PO (09:11)
[2018-05-02] MEDS: MIDODRINE 5 MG TAB PO ×3 (09:11→17:00)
[2018-05-02] MEDS: INSULIN GLARGINE [LANTus] (100 UNITS/ML) SYG SC (09:13)
[2018-05-02] MEDS: COLLAGENASE 5 GM (UD JAR) TOP (09:14)
[2018-05-02] MEDS: BALSAM PERU/CASTOR OIL 60 GM TUBE TOP ×2 (09:14→21:28)
[2018-05-02 10:12] LABS: FOLATE > 20.0 ng/ml (2.8-20.0)
[2018-05-02 10:18] LABS: ANISOCYTOSIS 2+ (0-0); BAND NEUTROPHILS #M 7.7 10^3/ul (0.0-0.6); BAND NEUTROPHILS % (M) 35 % (0-4); BURR CELLS 2+ (0-0); HYPOCHROMASIA 1+ (0-0); LYMPHOCYTES #M 0.6 10^3/ul (0.8-2.9); LYMPHOCYTES % (M) 3 % (15-51); METAMYELOCYTES #M 0.2 10^3/ul (0.0-0.0); METAMYELOCYTES %M 1 % (0-0); MONOCYTE #M 0.4 10^3/ul (0.3-0.9); MONOCYTES % (M) 2 % (0-11); PLATELET ESTIMATE DECREASED; POIKILOCYTOSIS 3+ (0-0); POLYCHROMASIA 1+ (0-0); SEG NEUT #M 14.8 10^3/ul (1.6-7.5); SEGMENTED NEUTROPHILS (M) % 59 % (39-77); SMUDGE%M 2 % (0-0)
[2018-05-02 10:51] LABS: CREATINE KINASE 41 IU/L (23-200)
[2018-05-02 10:58] LABS: CK INDEX 3.2; CK-MB 1.32 ng/ml (0.0-2.4)
[2018-05-02] MEDS: PROPOFOL 100 ML IV (13:00)
[2018-05-02] MEDS: CEFEPIME 1GM/50 ML IVPB (13:18)
[2018-05-02] MEDS: ASPIRIN 81 MG TAB PO (13:19)
[2018-05-02] MEDS: LANSOPRAZOLE 30 MG CAP PO (18:00)
[2018-05-02] MEDS: ATORVASTATIN 20 MG TAB PO (21:28)
[2018-05-03] MEDS: INSULIN ASPART [NOVOLOG] 3 ML PEN SC ×6 (00:04→20:18)
[2018-05-03] MEDS: PROPOFOL 100 ML IV ×3 (00:05→23:43)
[2018-05-03] MEDS: ACCU-CHEK XX (01:54)
[2018-05-03] MEDS: PHENYLephrine 80 MG in DEXTROSE 5% 242 ML IV ×2 (05:03→12:18)
[2018-05-03] MEDS: METOCLOPRAMIDE 10 MG INJ IV ×5 (05:22→23:38)
[2018-05-03] MEDS: LANSOPRAZOLE 30 MG CAP PO ×2 (05:22→17:14)
[2018-05-03] MEDS: LEVOTHYROXINE 100 MCG VIAL IV (05:22)
[2018-05-03 05:30] LABS: HEMATOCRIT 24.9 % (37.0-47.0); HEMOGLOBIN 8.6 g/dl (12.0-16.0); MEAN CORPUSCULAR HEMOGLOBIN 32.7 pg (29.0-33.0); MEAN CORPUSCULAR HGB CONC 34.5 g/dl (32.0-37.0); MEAN CORPUSCULAR VOLUME 94.7 fl (82.0-101.0); MEAN PLATELET VOLUME 12.1 fl (7.4-10.4); NUCLEATED RED BLOOD CELLS% 0.3 /100WBC (0.0-0.0); PLATELET COUNT 102 10^3/UL (140-415); RED BLOOD COUNT 2.63 10^6/ul (4.20-5.40); RED CELL DISTRIBUTION WIDTH 19.2 % (11.5-14.5)
[2018-05-03 05:30] LABS: WHITE BLOOD COUNT 19.1 10^3/ul (4.8-10.8)
[2018-05-03 05:48] LABS: ADD MAN DIFF? YES; POSITIVE DIFF @See below
[2018-05-03 05:59] LABS: PHOSPHORUS 1.4 mg/dl (2.5-4.9)
[2018-05-03 05:59] LABS: ANION GAP 12 (5-13); BLOOD UREA NITROGEN 21 mg/dl (7-20); CALCIUM 7.4 mg/dl (8.4-10.2); CARBON DIOXIDE 25 mmol/L (21-31); CHLORIDE 93 mmol/L (97-110); CREATININE 1.79 mg/dl (0.44-1.00); GLUCOSE 190 mg/dl (70-220); MAGNESIUM 1.7 mg/dl (1.7-2.5); POTASSIUM 3.2 mmol/L (3.5-5.1); SODIUM 130 mmol/L (135-144)
[2018-05-03] MEDS: HYDROCORTISONE 100 MG INJ IV (08:27)
[2018-05-03] MEDS: POTASSIUM PHOSPHATE 30 MM in SOD CHLORIDE 0.9% 250 ML IVPB (08:28)
[2018-05-03] MEDS: ASPIRIN 81 MG TAB PO (08:30)
[2018-05-03] MEDS: MULTIVIT/CA CARB/B CMPLX/FA TAB PO (08:30)
[2018-05-03] MEDS: CALCIUM/VITAMIN D (500/200) TAB PO ×2 (08:30→20:14)
[2018-05-03] MEDS: MIDODRINE 5 MG TAB PO ×3 (08:32→16:43)
[2018-05-03] MEDS: BALSAM PERU/CASTOR OIL 60 GM TUBE TOP ×2 (08:33→20:15)
[2018-05-03] MEDS: COLLAGENASE 5 GM (UD JAR) TOP (08:33)
[2018-05-03 08:47] LABS: ANISOCYTOSIS 2+ (0-0); BAND NEUTROPHILS #M 3.2 10^3/ul (0.0-0.6); BAND NEUTROPHILS % (M) 17 % (0-4); BASOPHIL #M 0.3 10^3/ul (0.0-0.0); BASOPHILS % (M) 2 % (0-2); GIANT THROMBO% (M) 7 % (0-0); MONOCYTE #M 0.5 10^3/ul (0.3-0.9); MONOCYTES % (M) 3 % (0-11); PLATELET ESTIMATE DECREASED; POIKILOCYTOSIS 2+ (0-0); PROMYELOCYTES #M 0.1 10^3/ul (0-0); PROMYELOCYTES % (M) 1 % (0-0); REACTIVE LYMPHOCYTES #M 0.1 10^3/ul (0.0-0.0); REACTIVE LYMPHOCYTES% (M) 1 % (0-0); SEG NEUT #M 15.1 10^3/ul (1.6-7.5); SEGMENTED NEUTROPHILS (M) % 76 % (39-77)
[2018-05-03] MEDS: INSULIN GLARGINE [LANTus] (100 UNITS/ML) SYG SC (09:33)
[2018-05-03] MEDS: CEFEPIME 1GM/50 ML IVPB (12:02)
[2018-05-03] MEDS: FENTAnyl (DRIP) 1000 mcg/100mL 100 ML IV (14:41)
[2018-05-03] MEDS: MAGNESIUM SULFATE 2 GM/50 ML 50 ML IVPB (19:30)
[2018-05-03] MEDS: ATORVASTATIN 20 MG TAB PO (20:14)
[2018-05-04] MEDS: INSULIN ASPART [NOVOLOG] 3 ML PEN SC ×6 (00:52→20:41)
[2018-05-04] MEDS: ACCU-CHEK XX (01:09)
[2018-05-04] MEDS: PHENYLephrine 80 MG in DEXTROSE 5% 242 ML IV ×2 (02:39→21:02)
[2018-05-04 05:01] LABS: ADD MAN DIFF? NO
[2018-05-04 05:04] LABS: WHITE BLOOD COUNT 18.4 10^3/ul (4.8-10.8)
[2018-05-04 05:04] LABS: BASOPHIL # 0.1 10^3/ul (0.0-0.1); BASOPHILS % 0.3 % (0.0-2.0); EOSINOPHILS % 0.2 % (0.0-7.0); HEMOGLOBIN 8.7 g/dl (12.0-16.0); LYMPHOCYTES # 0.8 10^3/ul (0.8-2.9); LYMPHOCYTES % 4.4 % (15.0-51.0); MEAN CORPUSCULAR HEMOGLOBIN 31.5 pg (29.0-33.0); MEAN CORPUSCULAR HGB CONC 33.5 g/dl (32.0-37.0); MEAN CORPUSCULAR VOLUME 94.2 fl (82.0-101.0); MEAN PLATELET VOLUME 12.3 fl (7.4-10.4); MONOCYTE # 0.6 10^3/ul (0.3-0.9); MONOCYTES % 3.5 % (0.0-11.0); NEUTROPHIL # 16.6 10^3/ul (1.6-7.5); NEUTROPHILS % 90.4 % (39.0-77.0); NUCLEATED RED BLOOD CELLS% 0.2 /100WBC (0.0-0.0); PLATELET COUNT 117 10^3/UL (140-415); RED BLOOD COUNT 2.76 10^6/ul (4.20-5.40); RED CELL DISTRIBUTION WIDTH 20.1 % (11.5-14.5)
[2018-05-04] MEDS: LEVOTHYROXINE 100 MCG VIAL IV (05:09)
[2018-05-04] MEDS: LANSOPRAZOLE 30 MG CAP PO ×2 (05:09→17:00)
[2018-05-04] MEDS: METOCLOPRAMIDE 10 MG INJ IV ×3 (05:09→17:00)
[2018-05-04 05:14] LABS: OCCULT BLOOD STOOL POSITIVE (NEGATIVE)
[2018-05-04 05:24] LABS: ANION GAP 9 (5-13); BLOOD UREA NITROGEN 31 mg/dl (7-20); CALCIUM 7.6 mg/dl (8.4-10.2); CARBON DIOXIDE 24 mmol/L (21-31); CHLORIDE 96 mmol/L (97-110); CREATININE 2.03 mg/dl (0.44-1.00); GLUCOSE 148 mg/dl (70-220); POTASSIUM 3.6 mmol/L (3.5-5.1); SODIUM 129 mmol/L (135-144)
[2018-05-04 05:28] LABS: VANCOMYCIN,RANDOM 10.2 ug/ml
[2018-05-04 05:47] LABS: MAGNESIUM 2.3 mg/dl (1.7-2.5)
[2018-05-04 05:47] LABS: PHOSPHORUS 2.9 mg/dl (2.5-4.9)
[2018-05-04] MEDS: CALCIUM/VITAMIN D (500/200) TAB PO ×2 (09:00→20:11)
[2018-05-04] MEDS: MIDODRINE 5 MG TAB PO ×3 (09:00→16:56)
[2018-05-04] MEDS: ASPIRIN 81 MG TAB PO (09:00)
[2018-05-04] MEDS: MULTIVIT/CA CARB/B CMPLX/FA TAB PO (09:00)
[2018-05-04] MEDS: VANCOMYCIN 1 GM 250 ML IVPB (09:23)
[2018-05-04] MEDS: COLLAGENASE 5 GM (UD JAR) TOP (09:23)
[2018-05-04] MEDS: HYDROCORTISONE 100 MG INJ IV (09:23)
[2018-05-04] MEDS: BALSAM PERU/CASTOR OIL 60 GM TUBE TOP ×2 (09:23→22:01)
[2018-05-04] MEDS: INSULIN GLARGINE [LANTus] (100 UNITS/ML) SYG SC (09:25)
[2018-05-04] MEDS: CEFEPIME 1GM/50 ML IVPB ×2 (12:00→15:53)
[2018-05-04] MEDS: PROPOFOL 100 ML IV (12:13)
[2018-05-04] MEDS: FENTAnyl (DRIP) 1000 mcg/100mL 100 ML IV (15:58)
[2018-05-04] MEDS: FOSFOMYCIN 3 GM PACKET PO (16:48)
[2018-05-04] MEDS: ATORVASTATIN 20 MG TAB PO (20:11)
[2018-05-05] MEDS: METOCLOPRAMIDE 10 MG INJ IV ×3 (00:05→12:55)
[2018-05-05] MEDS: PROPOFOL 100 ML IV ×2 (00:06→12:16)
[2018-05-05] MEDS: INSULIN ASPART [NOVOLOG] 3 ML PEN SC ×6 (00:41→21:48)
[2018-05-05] MEDS: ACCU-CHEK XX (00:42)
[2018-05-05] MEDS: LEVOTHYROXINE 100 MCG VIAL IV (05:11)
[2018-05-05] MEDS: LANSOPRAZOLE 30 MG CAP PO ×2 (05:12→18:01)
[2018-05-05 05:29] LABS: HEMATOCRIT 24.9 % (37.0-47.0); HEMOGLOBIN 8.7 g/dl (12.0-16.0); MEAN CORPUSCULAR HEMOGLOBIN 32.8 pg (29.0-33.0); MEAN CORPUSCULAR HGB CONC 34.9 g/dl (32.0-37.0); MEAN PLATELET VOLUME 12.2 fl (7.4-10.4); NUCLEATED RED BLOOD CELLS% 0.2 /100WBC (0.0-0.0); PLATELET COUNT 114 10^3/UL (140-415); RED BLOOD COUNT 2.65 10^6/ul (4.20-5.40)
[2018-05-05 05:29] LABS: WHITE BLOOD COUNT 17.3 10^3/ul (4.8-10.8)
[2018-05-05 05:34] LABS: POSITIVE DIFF @See below
[2018-05-05 05:35] LABS: ADD MAN DIFF? YES
[2018-05-05 05:59] LABS: MAGNESIUM 2.1 mg/dl (1.7-2.5)
[2018-05-05 06:00] LABS: ANION GAP 10 (5-13); BLOOD UREA NITROGEN 23 mg/dl (7-20); CALCIUM 7.6 mg/dl (8.4-10.2); CARBON DIOXIDE 23 mmol/L (21-31); CHLORIDE 99 mmol/L (97-110); CREATININE 1.65 mg/dl (0.44-1.00); GLUCOSE 196 mg/dl (70-220); POTASSIUM 3.2 mmol/L (3.5-5.1); SODIUM 132 mmol/L (135-144)
[2018-05-05] MEDS: ASPIRIN 81 MG TAB PO (09:03)
[2018-05-05] MEDS: CALCIUM/VITAMIN D (500/200) TAB PO ×2 (09:03→21:46)
[2018-05-05] MEDS: MULTIVIT/CA CARB/B CMPLX/FA TAB PO (09:03)
[2018-05-05] MEDS: HYDROCORTISONE 100 MG INJ IV (09:03)
[2018-05-05] MEDS: MIDODRINE 5 MG TAB PO ×3 (09:03→18:04)
[2018-05-05] MEDS: COLLAGENASE 5 GM (UD JAR) TOP (09:03)
[2018-05-05] MEDS: BALSAM PERU/CASTOR OIL 60 GM TUBE TOP ×2 (09:03→21:46)
[2018-05-05] MEDS: INSULIN GLARGINE [LANTus] (100 UNITS/ML) SYG SC (09:10)
[2018-05-05 09:40] LABS: ANISOCYTOSIS 2+ (0-0); BAND NEUTROPHILS #M 1.9 10^3/ul (0.0-0.6); BAND NEUTROPHILS % (M) 11 % (0-4); BURR CELLS 1+ (0-0); EOSINOPHILS % (M) 2 % (0-7); GIANT THROMBO% (M) 3 % (0-0); LYMPHOCYTES #M 0.1 10^3/ul (0.8-2.9); LYMPHOCYTES % (M) 1 % (15-51); MONOCYTE #M 0.3 10^3/ul (0.3-0.9); MONOCYTES % (M) 2 % (0-11); PLATELET ESTIMATE DECREASED; POIKILOCYTOSIS 2+ (0-0); REACTIVE LYMPHOCYTES #M 0.1 10^3/ul (0.0-0.0); REACTIVE LYMPHOCYTES% (M) 1 % (0-0); SEG NEUT #M 14.7 10^3/ul (1.6-7.5); SEGMENTED NEUTROPHILS (M) % 83 % (39-77); SMUDGE%M 43 % (0-0); SPHEROCYTES 1+ (0-0); TARGET CELLS 1+ (0-0)
[2018-05-05] MEDS: MIDAZOLAM (DRIP) 50 mg/50 mL 50 ML IV (09:55)
[2018-05-05] MEDS: FENTAnyl (DRIP) 1000 mcg/100mL 100 ML IV ×2 (10:23→23:07)
[2018-05-05] MEDS ORDERED: POTASSIUM CHLORIDE (SR) 20 MEQ TAB PO (15:34)
[2018-05-05] MEDS: PHENYLephrine 80 MG in DEXTROSE 5% 242 ML IV (15:36)
[2018-05-05] MEDS ORDERED: HEPARIN 1000 UNITS/ML 10 ML INJ CATHETER ×2 (18:00→19:00)
[2018-05-05] MEDS: POTASSIUM CHLORIDE 20 MEQ POWDER FOR ORAL SOLN GTB (18:01)
[2018-05-05] MEDS: ATORVASTATIN 20 MG TAB PO (21:46)
[2018-05-06] MEDS: PROPOFOL 100 ML IV ×2 (01:00→13:00)
[2018-05-06] MEDS: INSULIN ASPART [NOVOLOG] 3 ML PEN SC ×6 (01:00→21:00)
[2018-05-06] MEDS: PHENYLephrine 80 MG in DEXTROSE 5% 242 ML IV ×3 (01:18→18:13)
[2018-05-06] MEDS: ACCU-CHEK XX (02:00)
[2018-05-06 05:27] LABS: ADD MAN DIFF? NO
[2018-05-06 05:33] LABS: BASOPHILS % 0.1 % (0.0-2.0); EOSINOPHILS # 0.1 10^3/ul (0.0-0.5); EOSINOPHILS % 0.6 % (0.0-7.0); HEMATOCRIT 26.4 % (37.0-47.0); LYMPHOCYTES # 0.9 10^3/ul (0.8-2.9); LYMPHOCYTES % 5.4 % (15.0-51.0); MEAN CORPUSCULAR HEMOGLOBIN 32.6 pg (29.0-33.0); MEAN CORPUSCULAR HGB CONC 34.1 g/dl (32.0-37.0); MEAN CORPUSCULAR VOLUME 95.7 fl (82.0-101.0); MEAN PLATELET VOLUME 12.8 fl (7.4-10.4); MONOCYTE # 0.7 10^3/ul (0.3-0.9); MONOCYTES % 4.3 % (0.0-11.0); NEUTROPHIL # 14.7 10^3/ul (1.6-7.5); NEUTROPHILS % 88.5 % (39.0-77.0); NUCLEATED RED BLOOD CELLS # 0.1 10^3/ul (0.0-0.0); NUCLEATED RED BLOOD CELLS% 0.4 /100WBC (0.0-0.0); PLATELET COUNT 140 10^3/UL (140-415); RED BLOOD COUNT 2.76 10^6/ul (4.20-5.40); RED CELL DISTRIBUTION WIDTH 21.5 % (11.5-14.5)
[2018-05-06 05:33] LABS: WHITE BLOOD COUNT 16.6 10^3/ul (4.8-10.8)
[2018-05-06] MEDS: LEVOTHYROXINE 100 MCG TAB PO (05:57)
[2018-05-06] MEDS: LANSOPRAZOLE 30 MG CAP PO ×2 (05:57→17:12)
[2018-05-06 05:59] LABS: ANION GAP 7 (5-13); BLOOD UREA NITROGEN 32 mg/dl (7-20); CALCIUM 7.5 mg/dl (8.4-10.2); CARBON DIOXIDE 25 mmol/L (21-31); CHLORIDE 99 mmol/L (97-110); CREATININE 1.89 mg/dl (0.44-1.00); GLUCOSE 158 mg/dl (70-220); POTASSIUM 4.1 mmol/L (3.5-5.1); SODIUM 131 mmol/L (135-144)
[2018-05-06] MEDS: MULTIVIT/CA CARB/B CMPLX/FA TAB PO (08:24)
[2018-05-06] MEDS: CALCIUM/VITAMIN D (500/200) TAB PO ×2 (08:24→21:21)
[2018-05-06] MEDS: MIDODRINE 5 MG TAB PO ×3 (08:24→17:03)
[2018-05-06] MEDS: ASPIRIN 81 MG TAB PO (08:24)
[2018-05-06] MEDS: COLLAGENASE 5 GM (UD JAR) TOP (08:24)
[2018-05-06] MEDS: HYDROCORTISONE 100 MG INJ IV (08:24)
[2018-05-06] MEDS: INSULIN GLARGINE [LANTus] (100 UNITS/ML) SYG SC (08:25)
[2018-05-06] MEDS: BALSAM PERU/CASTOR OIL 60 GM TUBE TOP ×2 (08:25→21:21)
[2018-05-06] MEDS: FENTAnyl (DRIP) 1000 mcg/100mL 100 ML IV (10:14)
[2018-05-06] MEDS: CEFEPIME 1GM/50 ML IVPB (13:24)
[2018-05-06] MEDS: MIDAZOLAM (DRIP) 50 mg/50 mL 50 ML IV (14:52)
[2018-05-06] MEDS: EPOETIN 3000 UNITS/1 ML INJ (ESRD) SC (17:05)
[2018-05-06] MEDS: ATORVASTATIN 20 MG TAB PO (21:20)
[2018-05-07] MEDS: INSULIN ASPART [NOVOLOG] 3 ML PEN SC ×6 (01:00→21:29)
[2018-05-07] MEDS: PROPOFOL 100 ML IV ×2 (01:00→12:16)
[2018-05-07] MEDS: ACCU-CHEK XX (02:00)
[2018-05-07] MEDS: PHENYLephrine 80 MG in DEXTROSE 5% 242 ML IV ×2 (04:26→15:36)
[2018-05-07 05:06] LABS: ADD MAN DIFF? NO
[2018-05-07 05:17] LABS: ABNORMAL IP MESSAGE 1; BASOPHILS % 0.2 % (0.0-2.0); EOSINOPHILS # 0.1 10^3/ul (0.0-0.5); EOSINOPHILS % 0.9 % (0.0-7.0); HEMATOCRIT 25.7 % (37.0-47.0); HEMOGLOBIN 8.6 g/dl (12.0-16.0); LYMPHOCYTES # 0.8 10^3/ul (0.8-2.9); LYMPHOCYTES % 5.5 % (15.0-51.0); MEAN CORPUSCULAR HEMOGLOBIN 32.7 pg (29.0-33.0); MEAN CORPUSCULAR HGB CONC 33.5 g/dl (32.0-37.0); MEAN CORPUSCULAR VOLUME 97.7 fl (82.0-101.0); MONOCYTE # 0.5 10^3/ul (0.3-0.9); MONOCYTES % 3.8 % (0.0-11.0); NEUTROPHIL # 12.5 10^3/ul (1.6-7.5); NEUTROPHILS % 88.3 % (39.0-77.0); NUCLEATED RED BLOOD CELLS # 0.1 10^3/ul (0.0-0.0); NUCLEATED RED BLOOD CELLS% 0.9 /100WBC (0.0-0.0); PLATELET COUNT 130 10^3/UL (140-415); RED BLOOD COUNT 2.63 10^6/ul (4.20-5.40); RED CELL DISTRIBUTION WIDTH 22.5 % (11.5-14.5)
[2018-05-07 05:17] LABS: WHITE BLOOD COUNT 14.1 10^3/ul (4.8-10.8)
[2018-05-07 05:20] LABS: POSITIVE DIFF @See below
[2018-05-07 05:42] LABS: ANION GAP 8 (5-13); BLOOD UREA NITROGEN 23 mg/dl (7-20); CALCIUM 7.7 mg/dl (8.4-10.2); CARBON DIOXIDE 26 mmol/L (21-31); CHLORIDE 97 mmol/L (97-110); CREATININE 1.57 mg/dl (0.44-1.00); GLUCOSE 118 mg/dl (70-220); POTASSIUM 3.6 mmol/L (3.5-5.1); SODIUM 131 mmol/L (135-144)
[2018-05-07] MEDS: LANSOPRAZOLE 30 MG CAP PO ×2 (05:46→17:03)
[2018-05-07] MEDS: LEVOTHYROXINE 100 MCG TAB PO (05:46)
[2018-05-07 05:50] LABS: VANCOMYCIN,RANDOM 13.5 ug/ml
[2018-05-07] MEDS: FENTAnyl (DRIP) 1000 mcg/100mL 100 ML IV (06:36)
[2018-05-07 08:12] LABS: AADO2 Arterial 125.2 mmHg (7.0-24.0); Allen Test ACCEPTAB; Arterial Base Excess 1.8 mmol/L (-3.0-3); Arterial Blood Gas Oxygen Sat 85.6 mmHG (95.0-100.0); Arterial COHb 0.9 % (0.0-3.0); Arterial Fraction of Oxyhgb 84.6 % (93.0-99.0); Arterial HCO3 25.2 mmol/L (22.0-26.0); Arterial MetHb 0.3 % (0.0-1.5); Arterial pCO2 34.9 mmhg (35-45); MODE VENT - AC; Site Right Radial
[2018-05-07] MEDS: BALSAM PERU/CASTOR OIL 60 GM TUBE TOP ×2 (09:14→21:24)
[2018-05-07] MEDS: COLLAGENASE 5 GM (UD JAR) TOP ×2 (09:14→21:24)
[2018-05-07] MEDS: HYDROCORTISONE 100 MG INJ IV ×3 (09:14→21:14)
[2018-05-07] MEDS: MULTIVIT/CA CARB/B CMPLX/FA TAB PO (09:15)
[2018-05-07] MEDS: MIDODRINE 5 MG TAB PO ×3 (09:15→17:03)
[2018-05-07] MEDS: CALCIUM/VITAMIN D (500/200) TAB PO ×2 (09:15→21:15)
[2018-05-07] MEDS: ASPIRIN 81 MG TAB PO (09:15)
[2018-05-07] MEDS: INSULIN GLARGINE [LANTus] (100 UNITS/ML) SYG SC (09:17)
[2018-05-07] MEDS: CEFEPIME 1GM/50 ML IVPB (12:21)
[2018-05-07] MEDS: VANCOMYCIN 1 GM 250 ML IVPB (12:21)
[2018-05-07] MEDS: ATORVASTATIN 20 MG TAB PO (21:15)
[2018-05-08] MEDS: PROPOFOL 100 ML IV ×2 (01:00→12:32)
[2018-05-08] MEDS: INSULIN ASPART [NOVOLOG] 3 ML PEN SC ×6 (01:20→20:45)
[2018-05-08] MEDS: ACCU-CHEK XX (01:22)
[2018-05-08] MEDS: PHENYLephrine 80 MG in DEXTROSE 5% 242 ML IV ×2 (01:53→12:31)
[2018-05-08] MEDS: FENTAnyl (DRIP) 1000 mcg/100mL 100 ML IV (03:35)
[2018-05-08 05:31] LABS: ADD MAN DIFF? NO
[2018-05-08 05:58] LABS: ABNORMAL IP MESSAGE 1; BASOPHILS % 0.1 % (0.0-2.0); HEMATOCRIT 25.5 % (37.0-47.0); HEMOGLOBIN 8.6 g/dl (12.0-16.0); LYMPHOCYTES # 0.6 10^3/ul (0.8-2.9); LYMPHOCYTES % 3.1 % (15.0-51.0); MEAN CORPUSCULAR HEMOGLOBIN 32.7 pg (29.0-33.0); MEAN CORPUSCULAR HGB CONC 33.7 g/dl (32.0-37.0); MEAN PLATELET VOLUME 12.8 fl (7.4-10.4); MONOCYTE # 0.6 10^3/ul (0.3-0.9); MONOCYTES % 3.3 % (0.0-11.0); NEUTROPHIL # 16.5 10^3/ul (1.6-7.5); NEUTROPHILS % 92.7 % (39.0-77.0); NUCLEATED RED BLOOD CELLS # 0.2 10^3/ul (0.0-0.0); NUCLEATED RED BLOOD CELLS% 0.8 /100WBC (0.0-0.0); PLATELET COUNT 170 10^3/UL (140-415); RED BLOOD COUNT 2.63 10^6/ul (4.20-5.40); RED CELL DISTRIBUTION WIDTH 23.3 % (11.5-14.5)
[2018-05-08 05:58] LABS: WHITE BLOOD COUNT 17.8 10^3/ul (4.8-10.8)
[2018-05-08] MEDS: LEVOTHYROXINE 100 MCG TAB PO (05:58)
[2018-05-08] MEDS: LANSOPRAZOLE 30 MG CAP PO ×2 (05:58→16:54)
[2018-05-08 06:06] LABS: ALANINE AMINOTRANSFERASE 35 IU/L (13-69); ALBUMIN 1.7 g/dl (3.3-4.9); ALBUMIN/GLOBULIN RATIO 0.53; ALKALINE PHOSPHATASE 298 IU/L (42-121); ANION GAP 11 (5-13); ASPARTATE AMINO TRANSFERASE 40 IU/L (15-46); BILIRUBIN,INDIRECT 0.2 mg/dl (0-1.1); BILIRUBIN,TOTAL 0.2 mg/dl (0.2-1.3); BLOOD UREA NITROGEN 32 mg/dl (7-20); CALCIUM 7.4 mg/dl (8.4-10.2); CARBON DIOXIDE 26 mmol/L (21-31); CHLORIDE 93 mmol/L (97-110); CREATININE 1.84 mg/dl (0.44-1.00); GLUCOSE 227 mg/dl (70-220); POTASSIUM 3.9 mmol/L (3.5-5.1); SODIUM 130 mmol/L (135-144); TOTAL PROTEIN 4.9 g/dl (6.1-8.1)
[2018-05-08 06:18] LABS: POSITIVE DIFF @See below
[2018-05-08] MEDS: ASPIRIN 81 MG TAB PO (09:24)
[2018-05-08] MEDS: BALSAM PERU/CASTOR OIL 60 GM TUBE TOP ×2 (09:24→20:43)
[2018-05-08] MEDS: HYDROCORTISONE 100 MG INJ IV ×3 (09:24→20:43)
[2018-05-08] MEDS: MULTIVIT/CA CARB/B CMPLX/FA TAB PO (09:24)
[2018-05-08] MEDS: CALCIUM/VITAMIN D (500/200) TAB PO ×2 (09:24→20:43)
[2018-05-08] MEDS: INSULIN GLARGINE [LANTus] (100 UNITS/ML) SYG SC (09:28)
[2018-05-08] MEDS: MIDODRINE 5 MG TAB PO ×3 (09:29→16:53)
[2018-05-08] MEDS ORDERED: METOCLOPRAMIDE 10 MG INJ IV (10:49)
[2018-05-08] MEDS: CEFEPIME 1GM/50 ML IVPB (12:24)
[2018-05-08] MEDS: ATORVASTATIN 20 MG TAB PO (20:43)
[2018-05-09] MEDS: PROPOFOL 100 ML IV ×2 (01:00→20:39)
[2018-05-09] MEDS: ACCU-CHEK XX (01:01)
[2018-05-09] MEDS: INSULIN ASPART [NOVOLOG] 3 ML PEN SC ×6 (01:10→21:40)
[2018-05-09] MEDS: PHENYLephrine 80 MG in DEXTROSE 5% 242 ML IV (04:35)
[2018-05-09] MEDS: LANSOPRAZOLE 30 MG CAP PO ×2 (05:21→16:31)
[2018-05-09] MEDS: LEVOTHYROXINE 100 MCG TAB PO (05:21)
[2018-05-09 05:39] LABS: ADD MAN DIFF? NO
[2018-05-09 05:46] LABS: ABNORMAL IP MESSAGE 1; BASOPHILS % 0.2 % (0.0-2.0); HEMATOCRIT 26.8 % (37.0-47.0); LYMPHOCYTES # 0.6 10^3/ul (0.8-2.9); LYMPHOCYTES % 3.5 % (15.0-51.0); MEAN CORPUSCULAR HEMOGLOBIN 32.3 pg (29.0-33.0); MEAN CORPUSCULAR HGB CONC 33.6 g/dl (32.0-37.0); MEAN CORPUSCULAR VOLUME 96.1 fl (82.0-101.0); MEAN PLATELET VOLUME 12.5 fl (7.4-10.4); MONOCYTE # 0.8 10^3/ul (0.3-0.9); MONOCYTES % 4.2 % (0.0-11.0); NEUTROPHIL # 16.7 10^3/ul (1.6-7.5); NEUTROPHILS % 91.2 % (39.0-77.0); NUCLEATED RED BLOOD CELLS # 0.2 10^3/ul (0.0-0.0); NUCLEATED RED BLOOD CELLS% 0.9 /100WBC (0.0-0.0); PLATELET COUNT 222 10^3/UL (140-415); RED BLOOD COUNT 2.79 10^6/ul (4.20-5.40); RED CELL DISTRIBUTION WIDTH 23.4 % (11.5-14.5)
[2018-05-09 06:02] LABS: POSITIVE DIFF @See below
[2018-05-09 06:03] LABS: WHITE BLOOD COUNT 18.3 10^3/ul (4.8-10.8)
[2018-05-09 06:19] LABS: ANION GAP 11 (5-13); BLOOD UREA NITROGEN 42 mg/dl (7-20); CALCIUM 7.6 mg/dl (8.4-10.2); CARBON DIOXIDE 25 mmol/L (21-31); CHLORIDE 93 mmol/L (97-110); GLUCOSE 215 mg/dl (70-220); POTASSIUM 3.6 mmol/L (3.5-5.1); SODIUM 129 mmol/L (135-144)
[2018-05-09 06:28] LABS: PHOSPHORUS 2.8 mg/dl (2.5-4.9)
[2018-05-09 06:28] LABS: MAGNESIUM 1.9 mg/dl (1.7-2.5)
[2018-05-09] MEDS: ASPIRIN 81 MG TAB PO (08:06)
[2018-05-09] MEDS: HYDROCORTISONE 100 MG INJ IV ×3 (08:06→21:36)
[2018-05-09] MEDS: COLLAGENASE 5 GM (UD JAR) TOP (08:06)
[2018-05-09] MEDS: MULTIVIT/CA CARB/B CMPLX/FA TAB PO (08:06)
[2018-05-09] MEDS: CALCIUM/VITAMIN D (500/200) TAB PO ×2 (08:06→21:36)
[2018-05-09] MEDS: MIDODRINE 5 MG TAB PO ×3 (08:06→16:32)
[2018-05-09] MEDS: BALSAM PERU/CASTOR OIL 60 GM TUBE TOP ×2 (08:07→21:36)
[2018-05-09] MEDS: INSULIN GLARGINE [LANTus] (100 UNITS/ML) SYG SC (08:13)
[2018-05-09] MEDS: CEFEPIME 1GM/50 ML IVPB (14:29)
[2018-05-09] MEDS: NPH, HUMAN INSULIN ISOPHANE 3ML VIAL SC ×2 (15:01→21:39)
[2018-05-09] MEDS: MUPIROCIN 2% 22 GM OINT TOP ×2 (15:14→21:36)
[2018-05-09] MEDS: EPOETIN 3000 UNITS/1 ML INJ (ESRD) SC (16:33)
[2018-05-09] MEDS: ATORVASTATIN 20 MG TAB PO (21:36)
[2018-05-10] MEDS: PROPOFOL 100 ML IV ×2 (01:00→11:40)
[2018-05-10] MEDS: INSULIN ASPART [NOVOLOG] 3 ML PEN SC ×6 (01:59→21:00)
[2018-05-10] MEDS: ACCU-CHEK XX (02:00)
[2018-05-10 04:50] LABS: ADD MAN DIFF? NO
[2018-05-10 04:54] LABS: ABNORMAL IP MESSAGE 1; BASOPHILS % 0.2 % (0.0-2.0); HEMATOCRIT 24.2 % (37.0-47.0); HEMOGLOBIN 8.2 g/dl (12.0-16.0); LYMPHOCYTES # 0.4 10^3/ul (0.8-2.9); LYMPHOCYTES % 2.8 % (15.0-51.0); MEAN CORPUSCULAR HEMOGLOBIN 33.2 pg (29.0-33.0); MEAN CORPUSCULAR HGB CONC 33.9 g/dl (32.0-37.0); MEAN PLATELET VOLUME 12.3 fl (7.4-10.4); MONOCYTE # 0.8 10^3/ul (0.3-0.9); MONOCYTES % 5.5 % (0.0-11.0); NEUTROPHIL # 13.4 10^3/ul (1.6-7.5); NEUTROPHILS % 90.6 % (39.0-77.0); NUCLEATED RED BLOOD CELLS # 0.1 10^3/ul (0.0-0.0); NUCLEATED RED BLOOD CELLS% 0.9 /100WBC (0.0-0.0); PLATELET COUNT 195 10^3/UL (140-415); RED BLOOD COUNT 2.47 10^6/ul (4.20-5.40); RED CELL DISTRIBUTION WIDTH 24.4 % (11.5-14.5)
[2018-05-10 04:54] LABS: WHITE BLOOD COUNT 14.8 10^3/ul (4.8-10.8)
[2018-05-10 05:09] LABS: PHOSPHORUS 2.4 mg/dl (2.5-4.9)
[2018-05-10 05:09] LABS: MAGNESIUM 1.8 mg/dl (1.7-2.5)
[2018-05-10 05:10] LABS: ANION GAP 8 (5-13); BLOOD UREA NITROGEN 32 mg/dl (7-20); CALCIUM 7.3 mg/dl (8.4-10.2); CARBON DIOXIDE 29 mmol/L (21-31); CHLORIDE 96 mmol/L (97-110); CREATININE 1.69 mg/dl (0.44-1.00); GLUCOSE 169 mg/dl (70-220); POTASSIUM 3.1 mmol/L (3.5-5.1); SODIUM 133 mmol/L (135-144)
[2018-05-10 05:18] LABS: POSITIVE DIFF @See below
[2018-05-10] MEDS: LEVOTHYROXINE 100 MCG TAB PO (05:18)
[2018-05-10] MEDS: LANSOPRAZOLE 30 MG CAP PO ×2 (05:19→17:20)
[2018-05-10] MEDS: INSULIN GLARGINE [LANTus] (100 UNITS/ML) SYG SC (08:37)
[2018-05-10] MEDS: ASPIRIN 81 MG TAB PO (08:43)
[2018-05-10] MEDS: HYDROCORTISONE 100 MG INJ IV ×3 (08:43→21:06)
[2018-05-10] MEDS: MULTIVIT/CA CARB/B CMPLX/FA TAB PO (08:44)
[2018-05-10] MEDS: CALCIUM/VITAMIN D (500/200) TAB PO ×2 (08:44→21:06)
[2018-05-10] MEDS: MIDODRINE 5 MG TAB PO ×3 (08:44→17:20)
[2018-05-10] MEDS: BALSAM PERU/CASTOR OIL 60 GM TUBE TOP ×2 (08:45→21:07)
[2018-05-10] MEDS: MUPIROCIN 2% 22 GM OINT TOP ×2 (08:45→21:07)
[2018-05-10] MEDS: COLLAGENASE 5 GM (UD JAR) TOP (08:45)
[2018-05-10] MEDS: NPH, HUMAN INSULIN ISOPHANE 3ML VIAL SC ×3 (08:48→21:21)
[2018-05-10] MEDS: POTASSIUM PHOSPHATE 30 MM in SOD CHLORIDE 0.9% 250 ML IVPB (09:25)
[2018-05-10] MEDS: CEFEPIME 1GM/50 ML IVPB (11:49)
[2018-05-10] MEDS: MIDAZOLAM (DRIP) 50 mg/50 mL 50 ML IV (15:26)
[2018-05-10] MEDS: FENTAnyl (DRIP) 1000 mcg/100mL 100 ML IV (17:28)
[2018-05-10] MEDS: DEXTROSE 50% 50 ML SYRINGE IV (19:38)
[2018-05-10 19:45] LABS: GLUCOSE 62 mg/dl (70-220)
[2018-05-10] MEDS: ATORVASTATIN 20 MG TAB PO (21:06)
[2018-05-11] MEDS: PROPOFOL 100 ML IV ×2 (00:38→13:00)
[2018-05-11] MEDS: INSULIN ASPART [NOVOLOG] 3 ML PEN SC ×6 (01:00→20:39)
[2018-05-11] MEDS: ACCU-CHEK XX (01:44)
[2018-05-11 05:25] LABS: ADD MAN DIFF? NO
[2018-05-11 05:34] LABS: WHITE BLOOD COUNT 17.1 10^3/ul (4.8-10.8)
[2018-05-11 05:34] LABS: ABNORMAL IP MESSAGE 1; BASOPHILS % 0.1 % (0.0-2.0); HEMATOCRIT 21.7 % (37.0-47.0); HEMOGLOBIN 7.4 g/dl (12.0-16.0); LYMPHOCYTES # 0.6 10^3/ul (0.8-2.9); LYMPHOCYTES % 3.6 % (15.0-51.0); MEAN CORPUSCULAR HEMOGLOBIN 34.1 pg (29.0-33.0); MEAN CORPUSCULAR HGB CONC 34.1 g/dl (32.0-37.0); MEAN PLATELET VOLUME 12.2 fl (7.4-10.4); MONOCYTE # 1.1 10^3/ul (0.3-0.9); MONOCYTES % 6.5 % (0.0-11.0); NEUTROPHIL # 15.2 10^3/ul (1.6-7.5); NUCLEATED RED BLOOD CELLS # 0.3 10^3/ul (0.0-0.0); NUCLEATED RED BLOOD CELLS% 1.9 /100WBC (0.0-0.0); PLATELET COUNT 182 10^3/UL (140-415); RED BLOOD COUNT 2.17 10^6/ul (4.20-5.40); RED CELL DISTRIBUTION WIDTH 26.6 % (11.5-14.5)
[2018-05-11] MEDS: LANSOPRAZOLE 30 MG CAP PO ×2 (05:35→17:54)
[2018-05-11] MEDS: LEVOTHYROXINE 100 MCG TAB PO (05:35)
[2018-05-11 05:43] LABS: POSITIVE DIFF @See below
[2018-05-11 06:01] LABS: MAGNESIUM 1.7 mg/dl (1.7-2.5)
[2018-05-11 06:01] LABS: PHOSPHORUS 4.2 mg/dl (2.5-4.9)
[2018-05-11 06:08] LABS: ANION GAP 10 (5-13); BLOOD UREA NITROGEN 49 mg/dl (7-20); CALCIUM 6.9 mg/dl (8.4-10.2); CARBON DIOXIDE 24 mmol/L (21-31); CHLORIDE 99 mmol/L (97-110); CREATININE 1.82 mg/dl (0.44-1.00); GLUCOSE 117 mg/dl (70-220); POTASSIUM 3.2 mmol/L (3.5-5.1); SODIUM 133 mmol/L (135-144)
[2018-05-11] MEDS: MULTIVIT/CA CARB/B CMPLX/FA TAB PO (08:19)
[2018-05-11] MEDS: CALCIUM/VITAMIN D (500/200) TAB PO ×2 (08:19→20:36)
[2018-05-11] MEDS: HYDROCORTISONE 100 MG INJ IV ×3 (08:19→20:36)
[2018-05-11] MEDS: ASPIRIN 81 MG TAB PO (08:19)
[2018-05-11] MEDS: BALSAM PERU/CASTOR OIL 60 GM TUBE TOP ×2 (08:20→20:37)
[2018-05-11] MEDS: MUPIROCIN 2% 22 GM OINT TOP ×2 (08:20→20:37)
[2018-05-11] MEDS: NPH, HUMAN INSULIN ISOPHANE 3ML VIAL SC ×3 (08:28→20:38)
[2018-05-11] MEDS: INSULIN GLARGINE [LANTus] (100 UNITS/ML) SYG SC (08:29)
[2018-05-11] MEDS: MIDODRINE 5 MG TAB PO ×3 (08:53→17:02)
[2018-05-11] MEDS: COLLAGENASE 5 GM (UD JAR) TOP ×2 (08:58→10:33)
[2018-05-11] MEDS ORDERED: COLLAGENASE 5 GM (UD JAR) TOP ×2 (09:30)
[2018-05-11] MEDS: CEFEPIME 1GM/50 ML IVPB (12:05)
[2018-05-11] MEDS: VANCOMYCIN 1 GM 250 ML IVPB (12:34)
[2018-05-11] MEDS: POTASSIUM CHLORIDE (SR) 20 MEQ TAB PO (15:27)
[2018-05-11] MEDS: FLUCONAZOLE 100 MG TAB PO (17:02)
[2018-05-11] MEDS: PHENYLephrine 80 MG in DEXTROSE 5% 242 ML IV (17:05)
[2018-05-11] MEDS: EPOETIN 3000 UNITS/1 ML INJ (ESRD) SC (17:55)
[2018-05-11] MEDS: ATORVASTATIN 20 MG TAB PO (20:36)
[2018-05-11] MEDS: FENTAnyl (DRIP) 1000 mcg/100mL 100 ML IV (21:45)
[2018-05-12] MEDS: PROPOFOL 100 ML IV (00:56)
[2018-05-12] MEDS: INSULIN ASPART [NOVOLOG] 3 ML PEN SC ×3 (00:59→08:40)
[2018-05-12] MEDS: ACCU-CHEK XX (01:41)
[2018-05-12 04:56] LABS: ADD MAN DIFF? NO
[2018-05-12 05:02] LABS: WHITE BLOOD COUNT 18.8 10^3/ul (4.8-10.8)
[2018-05-12 05:02] LABS: ABNORMAL IP MESSAGE 1; BASOPHILS % 0.2 % (0.0-2.0); EOSINOPHILS % 0.1 % (0.0-7.0); HEMATOCRIT 24.7 % (37.0-47.0); HEMOGLOBIN 8.1 g/dl (12.0-16.0); LYMPHOCYTES # 0.4 10^3/ul (0.8-2.9); LYMPHOCYTES % 1.9 % (15.0-51.0); MEAN CORPUSCULAR HEMOGLOBIN 33.3 pg (29.0-33.0); MEAN CORPUSCULAR HGB CONC 32.8 g/dl (32.0-37.0); MEAN CORPUSCULAR VOLUME 101.6 fl (82.0-101.0); MEAN PLATELET VOLUME 12.5 fl (7.4-10.4); MONOCYTE # 0.9 10^3/ul (0.3-0.9); NEUTROPHIL # 17.4 10^3/ul (1.6-7.5); NEUTROPHILS % 92.3 % (39.0-77.0); NUCLEATED RED BLOOD CELLS # 0.7 10^3/ul (0.0-0.0); NUCLEATED RED BLOOD CELLS% 3.8 /100WBC (0.0-0.0); PLATELET COUNT 234 10^3/UL (140-415); RED BLOOD COUNT 2.43 10^6/ul (4.20-5.40); RED CELL DISTRIBUTION WIDTH 28.1 % (11.5-14.5)
[2018-05-12 05:12] LABS: ANION GAP 15 (5-13); BLOOD UREA NITROGEN 56 mg/dl (7-20); CALCIUM 6.8 mg/dl (8.4-10.2); CARBON DIOXIDE 22 mmol/L (21-31); CHLORIDE 95 mmol/L (97-110); CREATININE 2.39 mg/dl (0.44-1.00); GLUCOSE 194 mg/dl (70-220); MAGNESIUM 1.7 mg/dl (1.7-2.5); PHOSPHORUS 4.2 mg/dl (2.5-4.9); POSITIVE DIFF @See below; POTASSIUM 3.1 mmol/L (3.5-5.1); SODIUM 132 mmol/L (135-144)
[2018-05-12] MEDS: LANSOPRAZOLE 30 MG CAP PO (05:29)
[2018-05-12] MEDS: LEVOTHYROXINE 100 MCG TAB PO (05:29)
[2018-05-12] MEDS: INSULIN GLARGINE [LANTus] (100 UNITS/ML) SYG SC (08:00)
[2018-05-12] MEDS: ASPIRIN 81 MG TAB PO (08:31)
[2018-05-12] MEDS: FLUCONAZOLE 100 MG TAB PO (08:31)
[2018-05-12] MEDS: MULTIVIT/CA CARB/B CMPLX/FA TAB PO (08:31)
[2018-05-12] MEDS: CALCIUM/VITAMIN D (500/200) TAB PO (08:31)
[2018-05-12] MEDS: COLLAGENASE 5 GM (UD JAR) TOP (08:32)
[2018-05-12] MEDS: HYDROCORTISONE 100 MG INJ IV (08:32)
[2018-05-12] MEDS: MIDODRINE 5 MG TAB PO (08:32)
[2018-05-12] MEDS: BALSAM PERU/CASTOR OIL 60 GM TUBE TOP (08:33)
[2018-05-12] MEDS: MUPIROCIN 2% 22 GM OINT TOP (08:33)
[2018-05-12] MEDS: NPH, HUMAN INSULIN ISOPHANE 3ML VIAL SC (08:39)
[2018-05-12] MEDS: POTASSIUM CHLORIDE (SR) 20 MEQ TAB PO (10:07)
[2018-05-12] MEDS: LORAZEPAM 2 MG INJ IV (12:03)
[2018-05-12] MEDS: morphine (DRIP) 100 MG/100 ML 100 ML IV (12:25)
[2018-05-12] MEDS ORDERED: NPH, HUMAN INSULIN ISOPHANE 3ML VIAL SC (13:00)
== END 2018-05-12 13:54 | disposition expired | DRG 640 ==
LOC: PP2 04-24 20:07 → ICU 04-26 09:26 → E/R 19:51 → 6WM 21:32
PROC: 0QSGXZZ Reposition Right Tibia, External Approach (ICD-10-PCS; 2018-04-22 09:00)
PROC: 0HDMXZZ Extraction of Right Foot Skin, External Approach (ICD-10-PCS; 2018-04-22 09:00)
PROC: 5A1D70Z Performance of Urinary Filtration, Intermittent, Less than 6 Hours Per Day (ICD-10-PCS; principal; 2018-04-22 10:10)
PROC: 0BH17EZ Insertion of Endotracheal Airway into Trachea, Via Natural or Artificial Opening (ICD-10-PCS; 2018-04-22 10:10)
PROC: 5A1955Z Respiratory Ventilation, Greater than 96 Consecutive Hours (ICD-10-PCS; 2018-04-22 10:10)
PROC: 5A2204Z Restoration of Cardiac Rhythm, Single (ICD-10-PCS; 2018-04-22 10:10)
PROC: 5A12012 Performance of Cardiac Output, Single, Manual (ICD-10-PCS; 2018-04-22 10:10)
PROC: 06HY33Z Insertion of Infusion Device into Lower Vein, Percutaneous Approach (ICD-10-PCS; 2018-04-22 10:10)
PROC: 04HY33Z Insertion of Infusion Device into Lower Artery, Percutaneous Approach (ICD-10-PCS; 2018-04-22 10:10)
PROC: 30233N1 Transfusion of Nonautologous Red Blood Cells into Peripheral Vein, Percutaneous Approach (ICD-10-PCS; 2018-04-22 10:10)
PROC: 06HY33Z Insertion of Infusion Device into Lower Vein, Percutaneous Approach (ICD-10-PCS; 2018-04-22 10:10)
DX: E87.5 Hyperkalemia (principal); N18.6 End stage renal disease; I50.33 Acute on chronic diastolic (congestive) heart failure; J96.00 Acute respiratory failure, unspecified whether with hypoxia or hypercapnia; J69.0 Pneumonitis due to inhalation of food and vomit; A41.9 Sepsis, unspecified organism; R65.21 Severe sepsis with septic shock; I21.4 Non-ST elevation (NSTEMI) myocardial infarction; I63.9 Cerebral infarction, unspecified; I13.2 Hypertensive heart and chronic kidney disease with heart failure and with stage 5 chronic kidney disease, or end stage renal disease; G93.1 Anoxic brain damage, not elsewhere classified; D62 Acute posthemorrhagic anemia; K92.2 Gastrointestinal hemorrhage, unspecified; M80.052A Age-related osteoporosis with current pathological fracture, left femur, initial encounter for fracture; N39.0 Urinary tract infection, site not specified; I46.2 Cardiac arrest due to underlying cardiac condition; I49.01 Ventricular fibrillation; E11.22 Type 2 diabetes mellitus with diabetic chronic kidney disease; E11.21 Type 2 diabetes mellitus with diabetic nephropathy; E11.40 Type 2 diabetes mellitus with diabetic neuropathy, unspecified; E11.43 Type 2 diabetes mellitus with diabetic autonomic (poly)neuropathy; K31.84 Gastroparesis; E11.319 Type 2 diabetes mellitus with unspecified diabetic retinopathy without macular edema; E87.1 Hypo-osmolality and hyponatremia; E87.2 Acidosis; E88.09 Other disorders of plasma-protein metabolism, not elsewhere classified; E03.9 Hypothyroidism, unspecified; H54.62 Unqualified visual loss, left eye, normal vision right eye; I25.10 Atherosclerotic heart disease of native coronary artery without angina pectoris; I70.0 Atherosclerosis of aorta; I48.0 Paroxysmal atrial fibrillation; K74.60 Unspecified cirrhosis of liver; S82.871A Displaced pilon fracture of right tibia, initial encounter for closed fracture; S80.12XA Contusion of left lower leg, initial encounter; W18.30XA Fall on same level, unspecified, initial encounter; Z51.5 Encounter for palliative care; Z89.512 Acquired absence of left leg below knee; Z99.2 Dependence on renal dialysis; Z79.82 Long term (current) use of aspirin; Z79.4 Long term (current) use of insulin
CPT/HCPCS: 31500; 32555; 36415; 36430; 36600; 70450; 71045; 71250; 73510; 73560; 73600; 73610-RT; 73700; 74018; 74176; 78452; 80048; 80053; 80061; 80076; 80202; 82140; 82270; 82550; 82553; 82607; 82728; 82746; 82803; 82947; 82962; 83540; 83605; 83690; 83735; 84100; 84439; 84443; 84484; 85014; 85018; 85025; 85045; 85610; 85730; 86850; 86900; 86901; 86920; 87040; 87070; 87075; 87081; 87086; 87340; 90935; 92950; 93005; 93017; 93306; 93922; 93970; 94002; 94003; 94770; 96374; 96375; 97163; 99285-25